=== PATIENT | male | born 1950 | race Caucasian/White ===

== ENCOUNTER 2022-12-30 10:30 | Outpatient (RCR) | payer MEDICARE, BC, SELFPAY ==
--- NOTE | 2022-06-08 14:52 | PT.OPEX ---
PT [place] [facility] Eval PT [facility] Out[facility] Eval Start: 06/07/22 12:44 Freq: Status: Active Protocol: Document 06/07/22 12:44 VICKY (Rec: 06/07/22 12:46 VICKY [id number]) E-signed By Les Al DPT, MS Physical Therapy Outpatient Evaluation Insurance Information Recert Due Date 09/05/22 Insurance Name Medicare B,Blue [employer] Medical Diagnosis Pre-op left total knee arthroplasty Treating Diagnosis L knee pain, decreased L knee ROM, decreased L LE flexibility and strength, and gait dysfunction Subjective Subjective Pt is a 72 y.o. male who presents to PT prior to L TKA on 06/30/22 at [facility]. Has struggled with chronic L knee pain for the past few years after an injury working during [employer] up in [place] which has limited mihcelle to standing and walking. Lives with his in a split-level home with 10-12 stairs and 1 railing. Has been recumbent biking for 30 minutes 5-6 days per week and performing SLR, wall sits and other LE strengthening exercises in prep for surgery. Leaves for a 10 day cruise in the [place] and would like advice for exercise. PMH includes HTN and prostate CA in remission. AGGR factors: walking, stair climbing, standing, sleeping, uneven surfaces, carrying objects. ALLEV factors: ice, rest. 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 Good quality of quad set with knee ROM 0-0-134 deg. Pt highly motivated to increase activity levels which have been limited by pain. He will benefit from continued skilled PT intervention to address these limitations, returning following L TKA. Primary Functional Limitations walking, stair climbing, standing, sleeping, uneven surfaces, carrying objects Plan of Care Rehabilitation Potential Excellent Physical Therapy Goals By end of session today, patient will... Demonstrate appropriate gait pattern with FWW to utilize post-surgery for optimal safety when ambulating Verbalize understanding of most appropriate home set up including needed equipment for optimal safety and recovery post- surgery Be independent in HEP program to show ability to perform appropriate exercises post-surgery Coordination/Communication With Referral Source Treatment Plan/Direct Interventions Gait Training,Joint Mobilization,Manual Therapy, Neuromuscular Re-ed, Therapeutic Exercises Frequency/Duration One pre-op visit then 2 x per week for at least 12-18 visits , decreasing visit frequency, as able. Patient Will Be Discharged From Therapy Completion of LTG(s),Skills Plateau,Independent w/HEP, Independently Progressing Evaluation Billing Untimed Code Treatment Minutes 24 Complexity Moderate Certification Information Initial Certification Date 06/07/22 Ending Certification Date 09/05/22 Provider Signature Shows Agreement With POC & Medical Necessity Physician Signature & Date Requested Please Sign/Date Here Physician Comment/Change : Physician NPI Number #
--- NOTE | 2022-09-17 14:56 | PT.OPDNX ---
PT [place] Outpatient Daily Note PT [facility] Outpatient Daily Note Start: 06/07/22 12:44 Freq: Status: Active Protocol: Document 09/17/22 14:42 VICKY (Rec: 09/17/22 14:55 VICKY [id number]) E-signed By YANDY LunsfordT, MS PT OP Daily Progress Note Visit Information Note Type Daily Note Visit Number [id number] Insurance Authorized Visits - Physician Authorized Visits Eval and treat Insurance Information Recert Due Date 09/05/22 Insurance Name Medicare B Medical Diagnosis Post-op left total knee arthroplasty Treating Diagnosis L knee pain, decreased L knee ROM, decreased L LE flexibility and strength, and gait dysfunction Subjective Subjective Pt reports his knee is tight and sore today after yesterday 's PT session. Passive ext going well. Sleep improving. Pain Comments 0-3/10 Preferred Name [facility] Precautions Weight Bearing Status Weight Bear as Tolerated Objective Other/Pertinent Objective L Knee passive ROM (supine) 0-1-119 deg Strength Hip flex: R 5, L 4+ Knee ext: R 5, L 4+ Knee flex: R 5, L 4+ Hip ABD: R 4+, L 4 Hip ext: R 4+, L 4 Gait: with SPC improved dvelocity with a stable pattern. without AD decreased R toe off and mild R Trendelenburg Stairs: Reciprocal pattern using momentum with 1 railing ascending with step-to pattern descending 4 steps Posture: Mild L trunk lean in standing Swelling: none observed Sensation: light touch intact bilat LE Patient Instructed in Risks/Benefits Yes Therapeutic Exercise Therapeutic Exercise Minutes (minutes) 35 Therapeutic Exercise: To Restore Progressed to recumbent bike x Functional Status 8 min L3 resistance with full rev seat #7 Standing TKE 3 plates 12 x 3 and BTB for home. Supine knee flex with PT assist Seated heel slide with R LE assist. Improved to 119 deg Walking march without AD at wall 25' x 6, 3 sets Seated HS stretch Standing heel raises at counter progressed 75% on L Seated HS curl 25# 10 x 3 with fatigue Standing gastroc stretch Rohit stretch SLS with L mild sway 5 sec Leg press B progressed 85# and uni 40# 10 x 3 each Passive knee ext stretch instructing him to hold as long as michelle Gait practice without AD cueing for increased velocity, upright posture and glute engagement Manual Therapy Techniques Manual Therapy Minutes (minutes) 10 Manual Therapy Techniques Knee AP mobs for ext STM distal hamstrings and proximal gastroc Treatment Minutes Timed Code Treatment Minutes 45 Total Treatment Time 45 Billing Units Manual Therapy Units 1 Therapeutic Exercise Units 2 Assessment/Impression Assessment/Impression Pt continues to progress well with continued improvement in L LE strength and NM control, quality of gait with and without a SPC and michelle to WBing activities. Ext ROM improving with pt performing passive ext stretching regularly. Good response again to combination of recumbent biking and progression or dynamic strengthening and balance exercises. Stairs improving with ecc control with descending remaining limited. Continues to display a stable gait pattern with a SPC with improved quality with training without an AD. Pt will benefit from continued skilled PT services, progressing as able. Plan of Care Physical Therapy Goals Short-term goals to be completed in 4 weeks: 1.Pt will display improved L knee passive ROM > 0-0-120 deg to improve quality of stair climbing. 2.Pt will display improved L LE strength as evidenced by ability to perform >12 SLR of good quality to improve quality of gait and progress to ambulation with single point cane. 3.Pt will report waking <3 times per night due to L knee pain to improve quality of sleep. Long-term goals to be completed in 10 weeks: 1.Pt will be independent and compliant with HEP 2.Pt will display improved L hip flex, hip ABD, quad and hamstring strength >4/5 to improve quality of gait without assistive device. 3.Pt will display improved mechanics going up<>down >3 stairs with a reciprocal pattern using 1 railing to safely enter his home. 4.Pt report >75% improvement in LEFS questionnaire to significantly improve michelle to daily activities. Daily Plan of Care Continue per POC Recertification Information Initial Certification Date 06/07/22 Recertification Start Date 09/05/22 Recertification Due Date 12/05/22 Reasons to Continue Skilled Therapy See assessment Rehabilitation Potential Excellent Continued Plan of Care and Interventions Continued TE, MT, NM re-ed and gait training 1-2x per week for 6-10 additional visits, decreasing frequency and transitioning to I sx management, as able. Provider Signature Shows Agreement With POC & Medical Necessity Physician Comment/Change Comment or Changes Physician NPI Number #
== END 2023-02-01 13:38 | disposition home or self-care (01) ==
PROVIDERS: PCP Family Medicine; Visit Provider Orthopaedic Surgery Sports Medicine
DX: M17.12 Unilateral primary osteoarthritis, left knee (principal); Z96.652 Presence of left artificial knee joint; Z51.89 Encounter for other specified aftercare
CPT/HCPCS: 97110; 97112; 97116; 97140; 97162; 97164; 97530

== ENCOUNTER 2023-09-05 15:43 | Emergency (ER) | payer MEDICARE, BC, SELFPAY ==
[2023-09-05] VITALS (150 sets, daily range): BP systolic 103–165; BP diastolic 67–96; PULSE 72–121; RESP 16–18; TEMP 36.7; O2SAT 89–99; BMI 27.4
--- NOTE | 2023-09-05 16:00 | ED.CHESTPAIN ---
HPI - Chest Pain General Time Seen by Provider: 16:00 Date Seen: 09/05/23 Chief Complaint: Chest Pain Stated Complaint: Chest/lower jaw pain Time Seen by Provider: 09/05/23 16:00 Source: patient, family, RN notes reviewed and old records reviewed Mode of arrival: ambulatory Limitations: no limitations History of Present Illness HPI narrative: 73-year-old male who presents today with chest pain. Patient notes 1 week of exertional substernal chest pain radiating to the jaw, better with rest. Decided to come in today because when the pain started did not go away quickly. He still has a little bit of pain. No associated nausea, diaphoresis, vomiting, or shortness of breath. No lower extremity swelling. Related Data Home Medications ?Medication ?Instructions ?Recorded ?Confirmed amlodipine 10 mg tablet 10 mg PO DAILY 04/21/22 11/16/22 chlorthalidone 25 mg tablet 25 mg PO DAILY 04/21/22 11/16/22 zolpidem 10 mg tablet 10 mg PO HS PRN 06/29/22 11/16/22 Previous Rx's ?Medication ?Instructions ?Recorded acetaminophen 500 mg capsule 500 - 1,000 mg (1 - 2 x 500 mg) PO 07/28/22 Q6H PRN #100 caps Allergies Allergy/AdvReac Type Severity Reaction Status Date / Time lisinopril Allergy Verified 11/16/22 09:41 pravastatin Allergy Verified 11/16/22 09:41 PFS PFS Medical History Essential hypertension ?I10 - Essential (primary) hypertension (ICD-10) Melanoma ?C43.9 - Malignant melanoma of skin, unspecified (ICD-10) Hyperlipemia ?E78.5 - Hyperlipidemia, unspecified (ICD-10) Surgical History Status post left knee replacement (07/28/22) ?Z96.652 - Presence of left artificial knee joint (ICD-10) H/O hernia repair ?Z98.890 - Other specified postprocedural states (ICD-10) ?Z87.19 - Personal history of other diseases of the digestive system (ICD-10) History of tonsillectomy ?Z90.89 - Acquired absence of other organs (ICD-10) H/O foot surgery (03/12/19) ?Z98.890 - Other specified postprocedural states (ICD-10) Family History Mother Colon cancer Father High blood pressure Social History Smoking Status: Never smoker Do you use any of these nicotine containing products: None How often do you have a drink containing alcohol: 4 or more times a week Alcohol type: hard liquor How many standard drinks containing alcohol do you have on a typical day: 1 or 2 How often do you have six or more drinks on one occasion: Never AUDIT-C Alcohol total score: 4 Non-prescribed substance use: denies use Caffeine: Yes (coffee, 2 cups/AM) service: No Exam Narrative Exam Narrative: General: Well-developed and well-nourished, no acute distress Head: Atraumatic and normocephalic Eyes: Pupils are equal reactive, extraocular motions intact, conjunctiva clear ENT: External nose and ears are normal, posterior pharynx without erythema or exudate Neck: No midline cervical tenderness, full spontaneous range of motion the neck, trachea midline, no adenopathy Heart: Regular rate and rhythm no murmurs or thrills Lungs: Clear to auscultation bilaterally without wheezes or crackles Abdomen: Soft, nontender, nondistended with active bowel sounds Musculoskeletal: No tenderness, deformity, or edema Neurologic: Awake, alert, and oriented x3, no gross focal neurologic deficits, cranial nerves intact as tested Psych: Mood and affect are appropriate Skin: No rashes Const Vital Signs, click to edit/add: Vital Signs - 24 hr 09/05/23 15:46 09/05/23 16:26 09/05/23 16:30 Temperature 98.0 F Pulse Rate 85 81 Pulse Rate [Right Pulse Oximeter] 93 Respiratory Rate 18 Blood Pressure Blood Pressure [Right Upper Arm] 165/78 H Pulse Oximetry 96 97 97 Oxygen Delivery Method Room Air 09/05/23 16:32 09/05/23 16:42 09/05/23 16:45 Temperature Pulse Rate 88 104 H 91 Pulse Rate [Right Pulse Oximeter] Respiratory Rate Blood Pressure 154/90 H 103/76 Blood Pressure [Right Upper Arm] Pulse Oximetry 95 89 92 Oxygen Delivery Method 09/05/23 16:47 09/05/23 16:52 09/05/23 16:57 Temperature Pulse Rate 92 96 93 Pulse Rate [Right Pulse Oximeter] Respiratory Rate Blood Pressure 133/87 105/67 110/76 Blood Pressure [Right Upper Arm] Pulse Oximetry 93 94 93 Oxygen Delivery Method 09/05/23 17:00 09/05/23 17:01 09/05/23 17:06 Temperature Pulse Rate 86 84 90 Pulse Rate [Right Pulse Oximeter] Respiratory Rate Blood Pressure 119/77 122/77 Blood Pressure [Right Upper Arm] Pulse Oximetry 94 97 94 Oxygen Delivery Method 09/05/23 17:12 09/05/23 17:15 09/05/23 17:17 Temperature Pulse Rate 88 91 92 Pulse Rate [Right Pulse Oximeter] Respiratory Rate Blood Pressure 121/88 128/86 Blood Pressure [Right Upper Arm] Pulse Oximetry 92 94 96 Oxygen Delivery Method 09/05/23 17:20 09/05/23 17:22 09/05/23 17:25 Temperature Pulse Rate 98 93 83 Pulse Rate [Right Pulse Oximeter] Respiratory Rate Blood Pressure 131/74 Blood Pressure [Right Upper Arm] Pulse Oximetry 94 94 94 Oxygen Delivery Method 09/05/23 17:27 09/05/23 17:30 09/05/23 17:32 Temperature Pulse Rate 86 75 90 Pulse Rate [Right Pulse Oximeter] Respiratory Rate Blood Pressure 117/79 128/88 Blood Pressure [Right Upper Arm] Pulse Oximetry 95 95 97 Oxygen Delivery Method 09/05/23 17:35 09/05/23 17:37 09/05/23 17:40 Temperature Pulse Rate 93 84 88 Pulse Rate [Right Pulse Oximeter] Respiratory Rate Blood Pressure 134/81 Blood Pressure [Right Upper Arm] Pulse Oximetry 95 96 96 Oxygen Delivery Method 09/05/23 17:42 09/05/23 17:45 09/05/23 17:47 Temperature Pulse Rate 85 90 84 Pulse Rate [Right Pulse Oximeter] Respiratory Rate Blood Pressure 126/78 119/76 Blood Pressure [Right Upper Arm] Pulse Oximetry 94 96 98 Oxygen Delivery Method 09/05/23 17:50 09/05/23 17:52 09/05/23 17:55 Temperature Pulse Rate 80 88 87 Pulse Rate [Right Pulse Oximeter] Respiratory Rate Blood Pressure 118/78 Blood Pressure [Right Upper Arm] Pulse Oximetry 96 98 98 Oxygen Delivery Method 09/05/23 17:57 09/05/23 18:00 09/05/23 18:02 Temperature Pulse Rate 87 82 85 Pulse Rate [Right Pulse Oximeter] Respiratory Rate Blood Pressure 133/76 126/79 Blood Pressure [Right Upper Arm] Pulse Oximetry 96 97 98 Oxygen Delivery Method 09/05/23 18:05 09/05/23 18:07 09/05/23 18:10 Temperature Pulse Rate 82 84 85 Pulse Rate [Right Pulse Oximeter] Respiratory Rate Blood Pressure 130/70 Blood Pressure [Right Upper Arm] Pulse Oximetry 97 96 96 Oxygen Delivery Method 09/05/23 18:12 09/05/23 18:15 09/05/23 18:17 Temperature Pulse Rate 80 85 80 Pulse Rate [Right Pulse Oximeter] Respiratory Rate Blood Pressure 132/79 128/91 H Blood Pressure [Right Upper Arm] Pulse Oximetry 97 96 98 Oxygen Delivery Method 09/05/23 18:20 09/05/23 18:21 09/05/23 18:25 Temperature Pulse Rate 82 84 82 Pulse Rate [Right Pulse Oximeter] Respiratory Rate Blood Pressure 138/83 Blood Pressure [Right Upper Arm] Pulse Oximetry 98 98 97 Oxygen Delivery Method 09/05/23 18:27 09/05/23 18:37 09/05/23 18:40 Temperature Pulse Rate 84 92 79 Pulse Rate [Right Pulse Oximeter] Respiratory Rate Blood Pressure 132/82 Blood Pressure [Right Upper Arm] Pulse Oximetry 98 99 98 Oxygen Delivery Method 09/05/23 18:45 09/05/23 18:50 09/05/23 18:55 Temperature Pulse Rate 78 72 74 Pulse Rate [Right Pulse Oximeter] Respiratory Rate Blood Pressure Blood Pressure [Right Upper Arm] Pulse Oximetry 97 98 96 Oxygen Delivery Method 09/05/23 19:00 09/05/23 19:02 09/05/23 19:05 Temperature Pulse Rate 77 85 81 Pulse Rate [Right Pulse Oximeter] Respiratory Rate Blood Pressure 140/85 H Blood Pressure [Right Upper Arm] Pulse Oximetry 96 97 98 Oxygen Delivery Method 09/05/23 19:10 09/05/23 19:15 09/05/23 19:20 Temperature Pulse Rate 83 85 89 Pulse Rate [Right Pulse Oximeter] Respiratory Rate Blood Pressure Blood Pressure [Right Upper Arm] Pulse Oximetry 96 98 96 Oxygen Delivery Method 09/05/23 19:25 09/05/23 19:30 09/05/23 19:35 Temperature Pulse Rate 100 103 H 89 Pulse Rate [Right Pulse Oximeter] Respiratory Rate Blood Pressure Blood Pressure [Right Upper Arm] Pulse Oximetry 96 97 97 Oxygen Delivery Method 09/05/23 19:40 09/05/23 19:45 09/05/23 19:50 Temperature Pulse Rate 93 90 93 Pulse Rate [Right Pulse Oximeter] Respiratory Rate Blood Pressure Blood Pressure [Right Upper Arm] Pulse Oximetry 97 95 97 Oxygen Delivery Method 09/05/23 19:52 09/05/23 19:55 09/05/23 19:57 Temperature Pulse Rate 88 97 98 Pulse Rate [Right Pulse Oximeter] Respiratory Rate Blood Pressure 157/96 H 158/88 H Blood Pressure [Right Upper Arm] Pulse Oximetry 95 96 94 Oxygen Delivery Method 09/05/23 19:58 09/05/23 20:00 09/05/23 20:02 Temperature Pulse Rate 94 101 H 102 H Pulse Rate [Right Pulse Oximeter] Respiratory Rate Blood Pressure 139/88 Blood Pressure [Right Upper Arm] Pulse Oximetry 94 96 93 Oxygen Delivery Method 09/05/23 20:05 09/05/23 20:07 09/05/23 20:08 Temperature Pulse Rate 97 98 100 Pulse Rate [Right Pulse Oximeter] Respiratory Rate Blood Pressure 151/94 H Blood Pressure [Right Upper Arm] Pulse Oximetry 96 94 95 Oxygen Delivery Method 09/05/23 20:10 09/05/23 20:12 09/05/23 20:15 Temperature Pulse Rate 103 H 105 H 105 H Pulse Rate [Right Pulse Oximeter] Respiratory Rate Blood Pressure 144/93 H Blood Pressure [Right Upper Arm] Pulse Oximetry 95 94 95 Oxygen Delivery Method 09/05/23 20:17 09/05/23 20:20 09/05/23 20:22 Temperature Pulse Rate 104 H 102 H 99 Pulse Rate [Right Pulse Oximeter] Respiratory Rate Blood Pressure 139/93 H 135/89 Blood Pressure [Right Upper Arm] Pulse Oximetry 93 94 92 Oxygen Delivery Method 09/05/23 20:25 09/05/23 20:27 09/05/23 20:30 Temperature Pulse Rate 112 H 105 H 104 H Pulse Rate [Right Pulse Oximeter] Respiratory Rate 16 Blood Pressure 152/91 H Blood Pressure [Right Upper Arm] Pulse Oximetry 94 92 94 Oxygen Delivery Method 09/05/23 20:32 09/05/23 20:35 09/05/23 20:37 Temperature Pulse Rate 106 H 109 H 109 H Pulse Rate [Right Pulse Oximeter] Respiratory Rate Blood Pressure 128/86 116/85 Blood Pressure [Right Upper Arm] Pulse Oximetry 93 95 92 Oxygen Delivery Method 09/05/23 20:40 09/05/23 20:41 09/05/23 20:45 Temperature Pulse Rate 106 H 104 H 101 H Pulse Rate [Right Pulse Oximeter] Respiratory Rate 18 Blood Pressure 118/81 Blood Pressure [Right Upper Arm] Pulse Oximetry 94 91 92 Oxygen Delivery Method 09/05/23 20:46 09/05/23 20:47 09/05/23 20:50 Temperature Pulse Rate 103 H 102 H 105 H Pulse Rate [Right Pulse Oximeter] Respiratory Rate Blood Pressure 111/78 Blood Pressure [Right Upper Arm] Pulse Oximetry 91 92 93 Oxygen Delivery Method 09/05/23 20:52 09/05/23 20:55 09/05/23 20:57 Temperature Pulse Rate 108 H 109 H 111 H Pulse Rate [Right Pulse Oximeter] Respiratory Rate 16 Blood Pressure 144/85 H 140/82 H Blood Pressure [Right Upper Arm] Pulse Oximetry 93 96 93 Oxygen Delivery Method 09/05/23 21:00 09/05/23 21:03 09/05/23 21:05 Temperature Pulse Rate 108 H 104 H 101 H Pulse Rate [Right Pulse Oximeter] Respiratory Rate Blood Pressure 138/85 Blood Pressure [Right Upper Arm] Pulse Oximetry 95 93 94 Oxygen Delivery Method 09/05/23 21:08 09/05/23 21:10 09/05/23 21:12 Temperature Pulse Rate 121 H 116 H 111 H Pulse Rate [Right Pulse Oximeter] Respiratory Rate Blood Pressure 123/84 151/95 H Blood Pressure [Right Upper Arm] Pulse Oximetry 91 95 95 Oxygen Delivery Method 09/05/23 21:15 09/05/23 21:17 09/05/23 21:18 Temperature Pulse Rate 107 H 106 H 104 H Pulse Rate [Right Pulse Oximeter] Respiratory Rate Blood Pressure 129/82 Blood Pressure [Right Upper Arm] Pulse Oximetry 95 95 94 Oxygen Delivery Method 09/05/23 21:20 09/05/23 21:22 09/05/23 21:25 Temperature Pulse Rate 104 H 105 H 107 H Pulse Rate [Right Pulse Oximeter] Respiratory Rate 18 Blood Pressure 123/81 Blood Pressure [Right Upper Arm] Pulse Oximetry 96 92 92 Oxygen Delivery Method 09/05/23 21:27 09/05/23 21:28 09/05/23 21:30 Temperature Pulse Rate 107 H 106 H 106 H Pulse Rate [Right Pulse Oximeter] Respiratory Rate 18 Blood Pressure 119/82 Blood Pressure [Right Upper Arm] Pulse Oximetry 94 92 93 Oxygen Delivery Method 09/05/23 21:32 09/05/23 21:35 09/05/23 21:37 Temperature Pulse Rate 104 H 107 H 106 H Pulse Rate [Right Pulse Oximeter] Respiratory Rate 16 Blood Pressure 121/73 112/74 Blood Pressure [Right Upper Arm] Pulse Oximetry 94 91 94 Oxygen Delivery Method 09/05/23 21:40 09/05/23 21:42 09/05/23 21:45 Temperature Pulse Rate 107 H 106 H 104 H Pulse Rate [Right Pulse Oximeter] Respiratory Rate Blood Pressure 113/74 Blood Pressure [Right Upper Arm] Pulse Oximetry 91 93 94 Oxygen Delivery Method 09/05/23 21:47 09/05/23 21:50 09/05/23 21:52 Temperature Pulse Rate 107 H 103 H 100 Pulse Rate [Right Pulse Oximeter] Respiratory Rate Blood Pressure 122/82 117/87 Blood Pressure [Right Upper Arm] Pulse Oximetry 93 92 97 Oxygen Delivery Method 09/05/23 21:53 09/05/23 21:55 09/05/23 21:57 Temperature Pulse Rate 98 103 H 103 H Pulse Rate [Right Pulse Oximeter] Respiratory Rate 16 Blood Pressure 122/76 Blood Pressure [Right Upper Arm] Pulse Oximetry 96 95 95 Oxygen Delivery Method 09/05/23 22:00 09/05/23 22:02 09/05/23 22:05 Temperature Pulse Rate 109 H 108 H 107 H Pulse Rate [Right Pulse Oximeter] Respiratory Rate 16 Blood Pressure 118/83 Blood Pressure [Right Upper Arm] Pulse Oximetry 94 93 91 Oxygen Delivery Method 09/05/23 22:07 09/05/23 22:10 09/05/23 22:12 Temperature Pulse Rate 103 H 106 H 104 H Pulse Rate [Right Pulse Oximeter] Respiratory Rate Blood Pressure 109/78 114/71 Blood Pressure [Right Upper Arm] Pulse Oximetry 92 94 92 Oxygen Delivery Method 09/05/23 22:15 09/05/23 22:17 09/05/23 22:20 Temperature Pulse Rate 100 99 97 Pulse Rate [Right Pulse Oximeter] Respiratory Rate Blood Pressure 111/76 Blood Pressure [Right Upper Arm] Pulse Oximetry 93 93 93 Oxygen Delivery Method 09/05/23 22:22 09/05/23 22:25 Temperature Pulse Rate 102 H 97 Pulse Rate [Right Pulse Oximeter] Respiratory Rate Blood Pressure 115/82 Blood Pressure [Right Upper Arm] Pulse Oximetry 94 95 Oxygen Delivery Method Course Course ED Course: Patient seen and examined, reviewed most recent primary care office visit from November 2022 which was follow-up for knee replacement, at that time no concerns. Reviewed medication list which includes amlodipine, chlorthalidone, and zolpidem. Patient presents today with about a week of exertional chest pain with increasing duration and intensity. Patient currently has very mild pain, EKG does not demonstrate any acute ischemic changes. We discussed the spectrum of acute coronary syndrome from STEMI to angina, rationale for testing today, and plan. Patient is agreeable. Aspirin and nitroglycerin are ordered. EKG ordered in independently interpreted by me performed at 4:08 p.m. demonstrates sinus rhythm with sinus arrhythmia and PVC, left axis deviation, no acute ST elevations or depressions, normal intervals, WI 178, QTC 440. No prior for comparison. Reevaluation(s) Time of Reevaluation #1: 17:17 Reevaluation #1: Labs ordered independently interpreted by me with troponin 0.05 which is just out of normal range, CBC is normal. Pain improved after nitroglycerin. Will repeat troponin and continue to monitor. Time of Reevaluation #2: 19:03 Reevaluation #2: Atrial repeat troponin is 0.13, representing significant delta. Patient's chest pain improved with nitroglycerin but has come back a little bit now. Repeat EKG is done, heparin drip will be initiated and transfer. Due to return of chest pain, repeat EKG was ordered and nitroglycerin drip will be started. EKG independently interpreted by me performed at 7:09 p.m. for return of chest pain demonstrates sinus rhythm with PVC, no acute ischemic changes, rate 85, WI 158, QTC 464. No change from prior of earlier today. Time of Reevaluation #3: 19:16 Reevaluation #3: Accepted for transfer to [facility] by Dr. Puckett, cardiology who accepts patient for transfer with delay. Additional Reevaluation(s): 22:34 patient remains stable in the emergency department nitroglycerin, did have to increased dose little bit due to recurrence of chest pain. Nursing report to Marcus now. Vital Signs Vital signs: Initial Vital Signs Temperature 98.0 F 09/05/23 15:46 Temperature Source Temporal Artery Scan 09/05/23 15:46 Pulse Rate 93 09/05/23 15:46 Pulse Rhythm Regular 09/05/23 15:46 Pulse Strength 3+ Normal 09/05/23 15:46 Respiratory Rate 18 09/05/23 15:46 Blood Pressure 165/78 H 09/05/23 15:46 Blood Pressure Mean 107 H 09/05/23 15:46 Blood Pressure Position Sitting 09/05/23 15:46 Pulse Oximetry 96 09/05/23 15:46 Oxygen Delivery Method Room Air 09/05/23 15:46 Vital Signs Temperature 98.0 F 09/05/23 15:46 Pulse Rate 93 09/05/23 15:46 Respiratory Rate 18 09/05/23 15:46 Blood Pressure 165/78 H 09/05/23 15:46 Pulse Oximetry 96 09/05/23 15:46 Oxygen Delivery Method Room Air 09/05/23 15:46 Temperature 98.0 F 09/05/23 15:46 Pulse Rate 97 09/05/23 22:25 Respiratory Rate 16 09/05/23 22:05 Blood Pressure 115/82 09/05/23 22:22 Pulse Oximetry 95 09/05/23 22:25 Oxygen Delivery Method Room Air 09/05/23 15:46 Medications Administered Medications: Generic Name Dose Route Start Last Admin Trade Name Freq PRN Reason Stop Dose Admin Heparin Sodium/Dextrose 25,000 unit in 500 mls @ 0 mls/hr 09/05/23 19:15 09/05/23 19:51 Heparin IV 1,000 unit/hr .Q0M CANDIS 20 mls/hr Administration Protocol Per Protocol Nitroglycerin/Dextrose 25,000 mcg in 250 mls @ 3 mls/hr 09/05/23 19:14 09/05/23 21:58 Nitroglycerin/Dextrose IVPB 10 mcg/min .TITRATE PRN 6 mls/hr Infusion Protocol 5 MCG/MIN Sodium Chloride 1,000 mls @ 1,000 mls/hr 09/05/23 22:12 09/05/23 22:14 0.9 % Sodium Chloride 1000 Ml IV 09/05/23 23:11 1,000 mls/hr .Q1H CANDIS Administration Nitroglycerin 0.4 mg 09/05/23 16:21 09/05/23 16:47 Nitroglycerin 0.4 Mg Tab.Subl SUBLINGUAL 0.4 mg Q5M PRN Administration chest pain Discontinued Medications Generic Name Dose Route Start Last Admin Trade Name Lucila PRN Reason Stop Dose Admin Aspirin 324 mg 09/05/23 16:21 09/05/23 16:31 Aspirin 81 Mg Tab.Chew PO 09/05/23 16:22 324 mg ONCE ONE Administration Heparin Sodium (Porcine) 4,000 unit 09/05/23 19:08 09/05/23 19:42 Heparin 5,000 Unit/0.5 Ml Inj IVP 09/05/23 19:09 4,000 unit ONCE ONE Administration MDM - Chest Pain Lab Data Labs: Lab Results 09/05/23 09/05/23 09/05/23 Range/Units 16:45 16:45 16:53 WBC 8.74 (4.50-11.00) K/uL RBC 4.60 (4.30-5.90) m/uL Hgb 14.6 (13.5-17.5) gm/dL Hct 42.2 (37.0-53.0) % MCV 92 (80-100) fL MCH 32 (26-34) pg MCHC 35 (32-36) gm/dL RDW Coeff of Dallin 12.6 (11.5-15.5) % Plt Count 182 (140-440) K/uL Neut % (Auto) 64.3 (42.0-72.0) % Lymph % (Auto) 22.2 (20-44) % Bledsoe % (Auto) 7.1 (0.0-11.0) % Eos % (Auto) 5.9 (0.0-7.0) % Baso % (Auto) 0.3 (0.0-3.0) % Neut # (Auto) 5.61 (1.7-7.0) K/uL Lymph # (Auto) 1.94 (0.90-2.90) K/uL Bledsoe # (Auto) 0.60 (0.00-0.90) K/UL Eos # (Auto) 0.52 H (0.00-0.50) K/uL Baso # (Auto) 0.03 (0.00-0.30) K/uL Abs Immat Gran (auto) 0.02 (0.00-0.30) K/uL Imm/Tot Granulo (auto) 0.2 % INR 1.00 1.04 (0.91-1.10) APTT 29 (23-33) Seconds Sodium 138 (135-149) mmol/L Potassium 3.9 (3.6-5.1) mmol/L Chloride 105 (96-114) mmol/L Carbon Dioxide 24 (20-32) mmol/L Anion Gap 9 (7-15) mEq/L BUN 17 (7-30) mg/dL Creatinine 1.0 (0.5-1.5) mg/dL Estimated Creat Clear 61.75 Estimated GFR 78 ml/min Glucose 106 (60-115) mg/dL Calcium 9.2 (8.4-10.6) mg/dL Magnesium 2.1 (1.5-2.6) mg/dL NT-Pro-B Natriuret Pep 74 pg/mL POC Troponin I 0.05 H (0.01-0.04) ng/ml 09/05/23 09/05/23 Range/Units 18:45 19:39 WBC 8.40 (4.50-11.00) K/uL RBC 4.58 (4.30-5.90) m/uL Hgb 14.5 (13.5-17.5) gm/dL Hct 42.2 (37.0-53.0) % MCV 92 (80-100) fL MCH 32 (26-34) pg MCHC 34 (32-36) gm/dL RDW Coeff of Dallin (11.5-15.5) % Plt Count 193 (140-440) K/uL Neut % (Auto) (42.0-72.0) % Lymph % (Auto) (20-44) % Bledsoe % (Auto) (0.0-11.0) % Eos % (Auto) (0.0-7.0) % Baso % (Auto) (0.0-3.0) % Neut # (Auto) (1.7-7.0) K/uL Lymph # (Auto) (0.90-2.90) K/uL Bledsoe # (Auto) (0.00-0.90) K/UL Eos # (Auto) (0.00-0.50) K/uL Baso # (Auto) (0.00-0.30) K/uL Abs Immat Gran (auto) (0.00-0.30) K/uL Imm/Tot Granulo (auto) % INR (0.91-1.10) APTT (23-33) Seconds Sodium (135-149) mmol/L Potassium (3.6-5.1) mmol/L Chloride (96-114) mmol/L Carbon Dioxide (20-32) mmol/L Anion Gap (7-15) mEq/L BUN (7-30) mg/dL Creatinine (0.5-1.5) mg/dL Estimated Creat Clear Estimated GFR ml/min Glucose (60-115) mg/dL Calcium (8.4-10.6) mg/dL Magnesium (1.5-2.6) mg/dL NT-Pro-B Natriuret Pep pg/mL POC Troponin I 0.13 H (0.01-0.04) ng/ml Critical Care Time Critical Care Time Critical Care Time: Yes (NSTEMI, heparin, transfer) Attestation: The patient required my highest level preparedness to intervene emergently and I personally spent this critical care time directly and personally managing the patient. This critical care time included: Obtaining a history; Examining the patient; Pulse oximetry; Ordering and reviewing of studies; Arranging urgent treatment with development of a management plan; Evaluation of patients response to treatment; Frequent reassessment discussions with other providers. This critical care time was performed to assess and manage the high probability of imminent life-threatening deterioration that could result in multiorgan failure. It was exclusive of separate billable procedures and treating other patients and teaching time. Total Critical Care Time in Minutes: 115 Discharge Plan Discharge Clinical Impression: Essential hypertension, Acute non-ST elevation myocardial infarction (NSTEMI) Patient Disposition: [facility] Prescriptions: No Action amlodipine 10 mg tablet 10 mg PO DAILY chlorthalidone 25 mg tablet 25 mg PO DAILY zolpidem 10 mg tablet 10 mg PO HS PRN acetaminophen 500 mg capsule 500 - 1,000 mg PO Q6H MDD 4000mg PRNQty: 100 0RF Stand Alone Forms: MyHealth Info Instructions
[2023-09-05] MEDS: ASPIRIN 81 MG TAB.CHEW 324 MG PO (16:31)
[2023-09-05] MEDS: NITROGLYCERIN 0.4 MG TAB.SUBL SUBLINGUAL ×2 (16:34→16:47)
--- OUTSIDE RECORDS SUMMARY | 2023-09-05 17:01 | XMS_ITS | Continuity of Care Document ---
[facility] Organization [facility] Address [address] [address] [place] [address] Phone Care Team Providers Care Drafter Electronic Name Role Phone Emile Joyner MD Unavailable Unavaila ble Allergies, Adverse Reactions, Alerts Substance Reaction Status Criticality lisinopril Active No Information simvastatin Active No Information pravastatin Active No Information Medications Medication Instructions Dosage Effective Dates (start - stop) Status Comments zolpidem 10 mg tablet Take 1 tablet by mouth at bedtime if needed for Sleep. - Active chlorthalidone 25 mg tablet Take 0.5 tablets by mouth once daily. - Active amlodipine 10 mg tablet Take 0.5 tablets by mouth once daily. - Active Procedures Procedure Date Virtual Visit E&M New Low-Mod 20-29 Min Advance Directives Directive Yes / No Effective Date File Name No Information Encounters Encounter Description Practice Location Reason(s) For Visit Diagnoses Date Provider Providers Copied on Encounter [facility], [address] [address], [place], [place], [id number], tel:[phone] [facility] Pancreas cyst 4 Ar Baptiste. [address] [place] [address], [id number], [place]. tel:[phone] [facility], [address] [address], [place], [place], [id number], [place] tel:[phone] [facility] Pancreas cyst 4 Ar Baptiste. [address] [place] [address], [id number], [place]. tel:[phone] [facility], [address] [address], [place], [place], [id number], tel:[phone] [facility] Pancreas cyst 1 Ar Baptiste. [address], [id number], . tel:[phone] Virtual Visit E&M New Low-Mod 20-29 Min [facility], [address] [address], [place], [place], [id number], [place] tel:[phone] [facility] GI Symptoms or Concerns (chief complaint) Pancreas cyst [address]. [address] [place] [address], [id number], [place]. tel:[phone] Referring Provider: Referral Self, USE FOR SELF REFERRALS. [facility], [address] [address], [place], [place], [id number], tel:[phone] [facility] No Information 0 Ar Baptiste. [address], [id number], . tel:[phone] [facility], [address] [address], [place], [place], [id number], tel:[phone] No Information 0 No Information Referring Provider: Emory Smalls MD E, [address] [place] [address], [place], [address]. tel:[phone] Family History Family Member Type Diagnosis Age At Onset Mother Problem (finding) cancer of colon Immunizations Vaccine Date Status Comments Seasonal trivalent influenza vaccine, adjuvanted, preservative free administered Note: [facility] bi-direct ional interface ; Source: Other Registry tetanus toxoid, reduced diphtheria toxoid, and acellular pertussis vaccine, adsorbed administered Note: [facility] b i-directional interface ; Source: Other Registry Seasonal trivalent influenza vaccine, adjuvanted, preservative free administered Note: [facility] bi-direct ional interface ; Source: Other Registry meningococcal oligosaccharid e (groups A, C, Y and W-135) diphtheria toxoid conjugate vaccine (MCV4O) administered Note: [facility] bi-direct ional interface ; Source: Other Registry measles, mumps and rubella v irus vaccine administered Note: [facility] bi-direct ional interface ; Source: Other Registry Seasonal trivalent influenza vaccine, adjuvanted, preservative free administered Note: [facility] bi-direct ional interface ; Source: Other Registry Pneumovax 23 administered Note: [facility] bi-d irectional interface ; Source: Other Registry influenza, high dose seasona l, preservative-free administered Note: [facility] bi-direct ional interface ; Source: Other Registry Prevnar 13 administered Note: [facility] bi-d irectional interface ; Source: Other Registry Fluzone Quad 6mo or older administered Note: [facility] bi-direct ional interface ; Source: Other Registry influenza, high dose seasona l, preservative-free administered Note: [facility] bi-direct ional interface ; Source: Other Registry typhoid Vi capsular polysaccharide vaccine administered Note: [facility] bi-dir ectional interface ; Source: Other Registry Influenza, seasonal, injecta ble, preservative free administered Note: [facility] bi-direct ional interface ; Source: Other Registry Influenza, seasonal, injecta ble, preservative free administered Note: [facility] bi-direct ional interface ; Source: Other Registry zoster vaccine, live administered Note: [facility] bi-directional interface ; Source: Other Registry Novel [id number], all formulations administered Note: [facility] bi-direct ional interface ; Source: Other Registry Influenza, seasonal, injectable administe red Note: [facility] bi- directional interface ; Source: Other Registry tetanus toxoid, reduced diphtheria toxoid, and acellular pertussis vaccine, adsorbed administered Note: [facility] b i-directional interface ; Source: Other Registry Influenza, seasonal, injectable administe red Note: [facility] bi- directional interface ; Source: Other Registry Influenza, seasonal, injectable administe red Note: [facility] bi- directional interface ; Source: Other Registry Influenza, seasonal, injectable administe red Note: [facility] bi- directional interface ; Source: Other Registry Influenza, seasonal, injectable administe red Note: [facility] bi- directional interface ; Source: Other Registry Influenza, seasonal, injectable administe red Note: [facility] bi- directional interface ; Source: Other Registry Payers Payer name Insurance type Covered green party ID Authoriza tijordyn(s) [employer] [place] [employer] [id number] Social History Type Description Quantity Date Captured Comments Alcohol Use Details Unknown Caffeine Use Details Unknown Tobacco Use Status No Information Smoking Status No Information Sex Male Chief Complaint And Reason For Visit No Information Reason For Referral Reason For Referral No Information Plan Of Treatment Date Type Action Status Referral Ordered: MRCP Biliary/Pancreatic Ducts WITHOUT And WITH Contrast Appointment date/timeframe: 09/18/2020 ordered History Of Present Illness Encounter Date Complaint History Of Prese nt Illness GI Symptoms or Concerns The radha ent was seen today for a virtual visit. It was confirmed that he was at home and he consented to his 's presents for the visit.The patient is a very pleasant 69-year-old man with past medical history significant for hypertension, hyperlipidemia, and pancreatic cyst. He is referred by Dr. Smalls for evaluation of this pancreatic cyst. 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 Cross-sectional imaging showed the pancreatic cyst in the head to be about 6 mm in size. No high-risk stigmata. He was seen for his annual checkup and repeat MRI was performed. This showed the cyst at the head/uncinate to have increased in size to 11 mm. No main duct involvement, solid component. He denies any abdominal pain, nausea, dyspepsia. No inadvertent weight loss, jaundice, scleral icterus, pruritus. He has had no change in his bowel habits. There is a family history for mother with colon cancer in her 70s and he has a melanoma in situ that Functional Status Date Functional Assessmen t No Information Instructions Date Instruction Additional Infor mation No Information Assessments Type Assessment Date assessment Pancreas cyst Patient Care Teams Name Effective Dates (start - stop) Status Members No Information
--- OUTSIDE RECORDS SUMMARY | 2023-09-05 17:01 | XMS_ITS | Clinical Summary ---
Author Organization [employer] [facility] [employer] Address [place], [place] [address] Care Team Providers Care Faculty Member Name Role Phone Meghan Hathaway AuD Unavailable [phone] Moose Gilmore MD Primary Care Provider [phone] Allergies Active Allergy Reactions Criticality Noted Date Comments Lisinopril Cough,Hepatic Dysfunction 10/19/2016 He had elevated ALT and AST when on a combination of lisinopril and pravastatin Pravastatin Hepatic Dysfunction 08/29/2019 He had elevated ALT and AST when on a combination of Pravastatin and Lisinopril. Emory Smalls MD signed electronically .................... 08/29/2019 Simvastatin Myalgia 02/01/2011 Medications Medication Sig Dispensed Refills Start Date End Date Status cholecalciferol (Vitamin D) 1,000 unit capsule Take 1 Capsule (1,000 units) by mouth once daily. 0 09/02/2020 Active amLODIPine (NORVASC) 10 mg tabletIndications:Es sential hypertension Take 0.5 Tablets (5 mg) by mouth once daily. 45 Tablet 3 03/11/2023 Active chlorthalidone (HYGROTON) 25 mg tabletIndications:Es sential hypertension Take 0.5 Tablets (12.5 mg) by mouth every morning. 45 Tablet 3 03/11/2023 Active zolpidem (AMBIEN) 10 mg tabletIndications:In somnia, idiopathic Take 1 Tablet (10 mg) by mouth at bedtime if needed for Sleep. 30 Tablet 03/11/2023 Active allopurinoL (ZYLOPRIM) 100 mg tabletIndications:Go ut, unspecified cause, unspecified chronicity, unspecified site take 100mg by mouth once daily for 2 weeks; then increase to 200mg for 2 weeks; then increase to 300mg 100 Tablet 08/12/2023 Active triamcinolone (ARISTOCORT; KENALOG) 0.1 % creamIndications:Dillon matitis Apply topically to affected area(s) 2 times daily if needed (Itching/rash). 60 g 08/16/2023 Active Active Problems Problem Noted Date Diagnosed Date Skin cancer 06/26/2020 Overview: 06/2020 left upper thigh, BCC, patient prefers full excision for this lesion--scheduled for excision 09/01/20 Atypical nevus 06/26/2020 Overview: 06/2020 left of midline upper back, moderate, negative margins Atypical mole 01/01/2020 Overview: 01/29/20 left mid upper back, severe atypia, excised 02/12/20 Dr. Selam Strong MD 12/28/19 left shoulder, severe atypia, excised 01/29/20 Dr. 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 Melanoma 08/29/2019 Overview: 01/29/20: Left mid back, melanoma in situ, excised 02/12/20. 08/24/19: Left shoulder, Melanoma in situ, excised 09/19/19. 06/28/22: No melanoma recalls. Statin intolerance 08/29/2019 Overview: Simvastatin caused myalgias in 2010. Pravastatin and Lisinopril resulted in drug induced hepatitis in 2016. Would be reluctant to put him on statins in the future. Emory Smalls MD signed electronically .................... 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 Overview: MRI 10/2017- two small pancreatic cysts, recommend repeat MRI in 1 year; Unchanged in 2020 - recommended repeat in 2 years Insomnia, unspecified 07/25/2010 Routine General Medical Exam ination at a Health Care Facility 02/16/2007 Overview: colonoscopy 2007 Recheck 5 yrs Colonoscopy 01/2012 diverticulosis repeat in 5 years Colonoscopy 02/2017 polyps repeat in 5 years Sensorineural hearing loss, bilateral 01/05/2007 Unspecified essential hypertension 04/21/2006 Mixed hyperlipidemia 04/21/2006 Resolved Problems Problem Noted Date Diagnosed Date Resolved Date Grief reaction 02/01/2011 09/02/2020 Special screening for malign ant neoplasm of prostate 12/15/2006 09/02/2020 Encounters Date Type Department Care Team Description 09/02/2023 Nurse Triage [facility] [address] [place] [address] Moose Gilmore MD Chest Pain/problem 08/12/2023 4:30 PM CDT Office Visit [facility] [address] [place] [address] Moose Gilmore MD Results 08/12/2023 Travel 08/03/2023 3:45 PM CDT Orders Only [facility] [address] [place] [address] Lab, [place] [facility] 08/03/2023 Travel 08/02/2023 Orders Only [facility] Scanner 1 scan: (1-Ord) [facility], [facility] MIDDLE FINGER PIP JOINT ARTHRODESIS, 08/02/2023 07/18/2023 8:15 AM CDT Preop Visit [facility] [place] [address] [address] Moose Gilmore MD Pre-Op Exam (PRE-OP PHYSICAL 08/02/23 - LT HAND SURGERY [facility] FAX: [phone] ) 07/18/2023 Travel from Last 3 Months Immunizations Name Administration Dates Next Due AMB Influenza, IIV3 (Age >=3 years)(Flu Clinic Only) 01/12/2008 Amb Influenza, Inact (High-d ose) (Flu Clinic Only) 01/23/2016 COVID-19 vaccine (Moderna 100mcg/0.5mL) PF, MDV 08/31/2021,05/30/2020,05/02/2020 Hepatitis A (Adult) 08/12/1995,01/21/1995 Influenza A (H1N1), Inactivated 01/10/2009 Influenza, High-dose Inactivated 12/13/2013 Influenza, High-dose Quadriv alent Inactivated 12/04/2022,12/15/2021,12/05/2020 Influenza, IIV3 (Age >=3 years) 11/16/19 13,02/16/2012,02/01/2011,11/24,11/29/2008,01/06/2007,01/12/2006 Influenza, IIV4 12/02/2014 Influenza, Inactivated IIV3 (Age 65+ Years) Preserv Free 12/02/2018,02/20/2018,12/15/2016 MMR 09/09/2017 Meningococcal Vaccine (Menveo) 09/09/2017 Pneumococcal Poly,23-Valent (Pneumovax) 07/05/2016 Pneumococcal conj 13-Valent (Prevnar 13) 04/21/2015 RSV, Recombinant ADJ Reconst ituted (Arexvy 120MCG/0.5mL) 12/04/2022 Td (Age >=7 Years) 07/05/1998 Tdap 02/20/2018,02/22/2008 Tuberculin (PPD) 12/02/2014 Typhoid (injectable) 05/14/2021,03/30/2011,04/14 Yellow Fever 04/15/2000 Zoster (Shingrix-RZV, recombinant) 12/08/2020, Zoster (Zostavax-ZVL, live) 02/13/2009 Family History Medical History Relation Name Comments Heart Disease Father Enrico sudden cardiac at 61 Hypertension Father Enrico had sympathecto my for HTN Cancer-colon Mother Selam of colon c ancer at 78 due to complications of surgery Hypertension Mother Selam Relation Name Status Comments Father Enrico (Age 61) of [place] Mother Selam (Age 78) of [place] Cancer Other Kalpana Alive Spouse Son 1 Edgar Alive Son 2 Darrius (Age 25) Suicide: h arian himself 05/18/2010 Social History Tobacco Use Types Packs/Day Years Used Date Smoking Tobacco: Never Passive Smoke Exposure: Never Smokeless Tobacco: Never Tobacco Cessation:Counseling Given: Not Answered Alcohol Use Standard Drinks/Week Comments Not Currently 7 (1 standard drink = 0.6 oz pur e alcohol) PHQ-2 Answer Date Recorded PHQ-2 TOTAL SCORE 0 03/11/2023 Social Connections Answer Date Recorded Frequency of Communication with Friends and Fami ly 0 03/11/2023 Financial Resource Strain Answer Date R ecorded Difficulty of Paying Living Expenses 3 03/11/2023 Difficulty of Paying Living Expenses Not on file 03/11/2023 Food Insecurity Answer Date Recorded Worried About Running Out of Food in the Last Ye ar 1 03/11/2023 Transportation Needs Answer Date Record ed Lack of Transportation (Medical) 1 03/11/2023 Housing Stability Answer Date Recorded Unable to Pay for Housing in the Last Year 1 03/11/2023 Sex and Gender Information Value Date Recorded Sex Assigned at Not on file Gender Identity Not on file Sexual Orientation Not on file Obstetrics History Last Filed Vital Signs Vital Sign Reading Time Taken Comments Blood Pressure 152/85 08/12/2023 4:31 PM CDT Pulse 74 08/12/2023 4:31 PM CDT Temperature 36.6 ??C (97.8 ??F) 07/21/2022 8:55 AM CD T Respiratory Rate 16 10/06/2022 8:47 AM CDT Oxygen Saturation 99% 08/12/2023 4:26 PM CDT Inhaled Oxygen Concentration - - Weight 86 kg (189 lb 8 oz) 08/12/2023 4:26 PM CD T Height 173.4 cm (5' 8.27) 07/18/2023 8:20 AM CD T Body Mass Index 28.59 07/18/2023 8:20 AM CDT Plan of Treatment Upcoming Encounters Date Type Department Care Team (Late st Contact Info) Description 09/20/2023 7:35 AM CDT Office Visit [facility] [address] [place] [address] Moose Gilmore MD [address] [facility] [address] 09/23/2023 8:00 AM CDT Orders Only [facility] [place] [address] [address] [place] [address] [place] 09/29/2023 9:00 AM CDT Office Visit [facility] [address] [place] [address] Moose Gilmore MD [address] [place] [address] Health Maintenance Due Date Last Done Comments Influenza for age 65+ 11/06/2023 12/04/2022 , 12/15/2021, 12/05/2020, Additional history exists Depression screening for age 12+ 03/11/2024 03/11/2023, 10/29/2021, 09/05/2020, Additional history exists Medicare Wellness for age 65+ 03/11/2024, 10/29/2021, 09/02/2020, Additional history exists BMI (ht and wt on same day) for age 18+ 07/17/2024 07/18/2023, 03/11/2023, 06/11/2022, Additional history exists Lipids for age 45-75 08/26/2024 08/27/2019, 01/26/2017, 10/25/2016, Additional history exists Colonoscopy through age 75 10/07/202710/06, 10/06/2022, 02/16/2017, Additional history exists Tetanus booster 02/21/2028 02/20/2018, 02/04, 07/05/1998 Pneumococcal series for age 65+ Completed 7, 04/21/2015 Hepatitis C screening for ag e 18-79 Completed 10/25/2016 Tdap Completed 02/20/2018, 02/22/2008 Zoster (shingles) series for age 50+ Completed 12/08/2020, 09/24/2020, 02/13/2009 COVID-19 vaccine series Completed 07/18/19 24, 12/04/2022, 01/04/2022, Additional history exists Procedures Procedure Name Priority Date/Time Associated Diagnosis Comments HEPATIC FUNCTION PANEL Routine 08/03/2023 3:47 PM CDT Gouty tophus CBC W PLT NO DIFF Routine 08/03/2023 3:4 7 PM CDT Gouty tophus URIC ACID Routine 08/03/2023 3:47 PM CDT Gouty tophus SCAN-OPERATIVE/PROC EDURE REPORT 08/02/2023 12:00 AM CDT POTASSIUM Routine 07/18/2023 8:52 AM CDT Essential hypertension COLONOSCOPY 10/06/2022 7:44 AM CDT LIPID PANEL W REFLEX MEASURED LDL Routine 08/27/2019 9:48 AM CDT Mixed hyperlipidemia ACUTE HEPATITIS PANEL Add On 10/25/2016 5:17 PM CDT Jaundice from Last 3 Months or Most Recently Relevant to Health Maintenance Results * CBC W PLT NO DIFF (08/03/2023 3:47 PM CDT) WHITE BLOOD COUNT 8.6 4.5 - 11.0 thou/cu mm 08/03/2023 3:51 PM CDT [facility] RED BLOOD COUNT 4.86 4.30 - 5.90 mil/cu mm 08/03/2023 3:51 PM CDT [facility] HEMOGLOBIN 15.8 13.5 - 17.5 g/dL 08/03/2023 3:51 PM CDT [facility] HEMATOCRIT 44.7 37.0 - 53.0 % 08/03/2023 3:51 PM CDT [facility] MCV 92 80 - 100 fL 08/03/2023 3:51 PM CDT [facility] MCH 32.5 26.0 - 34.0 pg 08/03/2023 3:51 PM CDT [facility] MCHC 35.3 32.0 - 36.0 g/dL 08/03/2023 3:51 PM CDT [facility] RDW 13.3 11.5 - 15.5 % 08/03/2023 3:51 PM CDT [facility] PLATELET COUNT 210 140 - 440 thou/cu mm 08/03/2023 3:51 PM CDT [facility] MPV 9.9 6.5 - 11.0 fL 08/03/2023 3:51 PM CDT [facility] Blood BLOOD SPECIMEN / Unknown Venipuncture / Unknown 08/03/2023 3:47 PM CDT 08/03/2023 3:48 PM CDT Moose Gilmore MD HEMATOLOGY Performing Organization Address City/[facility]/ZIP Co de Phone Number [facility] [address] [place] [address], * (ABNORMAL) URIC ACID (08/03/2023 3:47 PM CDT) URIC ACID 9.0(H) 3.4 - 7.0 mg/dL 08/04/2023 3:06 PM CDT [facility] Blood BLOOD SPECIMEN / Unknown Venipuncture / Unknown 08/03/2023 3:47 PM CDT 08/03/2023 3:48 PM CDT Moose Gilmore MD [facility] [address] [place] [address], * (ABNORMAL) HEPATIC FUNCTION PANEL (08/03/2023 3:47 PM CDT) ALBUMIN 4.4 4.0 - 4.9 g/dL 08/04/2023 3:06 PM CDT [facility] PROTEIN,TOTAL 7.5 6.0 - 8.0 g/dL 08/04/2023 3:06 PM CDT [facility] BILIRUBIN,TOTAL 0.5 0.0 - 1.2 mg/dL 08/04/2023 3:06 PM CDT [facility] BILIRUBIN,DIRECT <0.2 0.0 - 0.3 mg/dL 08/04/2023 3:06 PM CDT [facility] BILIRUBIN,INDIRE CT 08/04/2023 3:06 PM CDT [facility] Comment:Unable to calculate, Direct Bili <0.2 ALK PHOSPHATASE 80 40 - 129 IU/L 08/04/2023 3:06 PM CDT [facility] ALT (SGPT) 57(H) 10 - 50 IU/L 08/04/2023 3:06 PM CDT [facility] AST (SGOT) 48 10 - 50 IU/L 08/04/2023 3:06 PM CDT [facility] Blood BLOOD SPECIMEN / Unknown Venipuncture / Unknown 08/03/2023 3:47 PM CDT 08/03/2023 3:48 PM CDT Moose Gilmore MD CHEMISTRY Performing Organization Address City/[facility]/ZIP Co de Phone Number [facility] [address] [place] [address], * SCAN-OPERATIVE/PROCEDURE REPORT (08/02/2023 12:00 AM CDT) Scanner OTHER * POTASSIUM (07/18/2023 8:52 AM CDT) POTASSIUM 3.8 3.5 - 5.1 mmol/L 07/18/2023 5:49 PM CDT [facility] Blood BLOOD SPECIMEN / Unknown Venipuncture / Unknown 07/18/2023 8:52 AM CDT 07/18/2023 8:53 AM CDT Moose Gilmore MD CHEMISTRY [facility] [address] [address], * COLONOSCOPY (10/06/2022 7:44 AM CDT) 10/06/2022 7:44 AM CDT Narrative Transcriptions Silvio Padilla MD - 10/06/2022 8:43 AM CDT Patient Name: Enrico Venegas Procedure Date: 10/06/2022 Gender: Male Date of : 1950 Admit Type: Outpatient Procedure: Colonoscopy Proceduralist: Silvio Padilla MD , Rose Mary Jimenez (Nurse), Breann Taylor RN (Nurse) Indications/Pre-Op Diagnosis: High risk colon cancer surveillance:Personal history of multiple (3 or more) adenomas,Last colonoscopy: February 2017 Medications: Fentanyl 100 micrograms IV, Midazolam 3 mgIV, The level of sedation administered wasmoderate Procedure Description: The patient had risks, benefits and alternatives explained to andgave informed consent. The patient had a stable cardiopulmonary status and judged an adequate candidate for conscious sedation. The endoscope [id number]-H190L [id number] was passed through the anus andadvanced to the cecum, identified by appendiceal orifice and ileocecal valve.The colonoscopy was performed without difficulty. The patient toleratedthe procedure well. The quality of the bowel preparation was good. The ileocecal valve, appendiceal orifice, and rectum were photographed. Complications: No immediate complications. Estimated Blood Loss & Specimen: Estimated blood loss: none. Specimen collected - None Findings: The perianal and digital rectal examinations were normal. A 3 mm polyp was found in the descending colon. The polyp wassessile. The polyp was removed with a cold snare. Resection was complete, butthe polyp tissue was not retrieved. Scattered small and large-mouthed diverticula were found in thesigmoid colon, descending colon and ascending colon. The exam was otherwise without abnormality. Impressions/Post-Op Diagnosis: - One 3 mm polyp in the descending colon, removed with a cold snare. Complete resection. Polyp tissue not retrieved. - Diverticulosis in the sigmoid colon, in the descending colon and in the ascending colon. - The examination was otherwise normal. Recommendation: - Patient has a contact number available for emergencies. The signsand symptoms of potential delayed complications were discussed with the patient. Return to normal activities tomorrow. Written discharge instructions were provided to the patient. - Resume previous diet. - Continue present medications. - Await pathology results. - Repeat colonoscopy in 5 years for surveillance. Moderate Sedation: A time out was performed before the procedure. Moderate (conscious) sedation was administered by the endoscopy nurse and supervised bythe endoscopist. The following parameters were monitored: oxygensaturation, heart rate, blood pressure, EKG, CO2, respiratory rate, adequacy of pulmonary ventilation and reponse to care. Please refer to the patient's medical record flowsheets and nursing notes for moderate sedation details. Total physician intraservice time was 21 minutes. Silvio Padilla MD 10/06/2022 8:37:42 AM This report has been signed electronically. Note Initiated On: 10/06/2022 7:44 AM Procedure Code(s): --- Professional --- 27113, Colonoscopy, flexible; with removalof tumor(s), polyp(s), or other lesion(s) bysnare technique Diagnosis Code(s): --- Professional --- Z86.010, Personal history of colonicpolyps D12.4, Benign neoplasm of descending colon K57.30, Diverticulosis of large intestine without perforation or abscess withoutbleeding CPT copyright 2021 [employer]. All rights reserved. The codes documented in this report are preliminary and upon equipment operat0r reviewmay be revised to meet current compliance requirements. Scope In: 8:08:35 AM Scope Withdrawal Time 0 hours 12 minutes 51 seconds Scope Out: 8:27:19 AM Silvio Padilla MD PROCEDURE ORD * (ABNORMAL) LIPID PANEL W REFLEX MEASURED LDL (08/27/2019 9:48 AM CDT) CHOLESTEROL,TOTAL 219(H) 100 - 199 mg/dL 08/27/2019 4:52 PM CDT [facility] TRIGLYCERIDES 132 <150 mg/dL 08/27/2019 4:52 PM CDT [facility] HDL CHOLESTEROL 47 >40 mg/dL 0 4:52 PM CDT [facility] NON-HDL CHOLESTEROL 172(H) <145 mg/dl 08/27/2019 4:52 PM CDT [facility] CHOL/HDL RATIO 4.66(H) <4.50 08/27/2019 4:52 PM CDT [facility] LDL CHOLESTEROL 146(H) <=130 mg/dL 08/27/2019 4:52 PM CDT [facility] PROVIDER ORDERED STATUS RANDOM 08/27/2019 4:52 PM CDT [facility] Blood BLOOD SPECIMEN / Unknown Venipuncture / Unknown 08/27/2019 9:48 AM CDT 08/27/2019 9:48 AM CDT Emory Smalls MD CHEMISTRY [facility] [address] [place] [address], * ACUTE HEPATITIS PANEL (10/25/2016 5:17 PM CDT) HEPATITIS C ANTIBODY Non-Reactive Non-Reactive 10/27/2016 10:47 PM CDT [facility] IGM ANTI HAV Non-Reactive Non-Reactive 10/28/19 17 10:47 PM CDT [facility] HBSAG Nonreactive Nonreactive 10/27/2016 10:47 PM CDT [facility] IGM ANTI HBC Non-Reactive Non-Reactive 10/28/19 17 10:47 PM CDT [facility] Blood BLOOD SPECIMEN / Unknown Venipuncture / Unknown 10/25/2016 5:17 PM CDT 10/25/2016 5:17 PM CDT Narrative [facility] - 10/27/2016 10:47 PM CDT Anti-HBc IgM not detected. Does not exclude the possibility of exposure to or infection with HBV. Emory Smalls MD SEND OUTS [facility] [address] [place] [address], from Last 3 Months or Most Recently Relevant to Health Maintenance Advance Directives Documents on File Type Date Recorded Patient Service Engineer Expl anation Healthcare Directive 07/06/2016 10:40 AM [facility], 05/09/2016 Care Teams Faculty Member Relationship Specialty Start Date End Date Moose Gilmore MD [address] [place] [address] PCP - General Family Practice 03/19/21 Meghan Hathaway AuD Audiology 02/10/06
[2023-09-05 17:02] LABS: Basophils Absolute Auto 0.03 K/uL (0.00-0.30); Basophils Percent Auto 0.3 % (0.0-3.0); Eosinophils Absolute Auto 0.52 K/uL (0.00-0.50); Eosinophils Percent Auto 5.9 % (0.0-7.0); Hematocrit 42.2 % (37.0-53.0); Hemoglobin* 14.6 gm/dL (13.5-17.5); Immature Granulocytes Abs Auto 0.02 K/uL (0.00-0.30); Immature Granulocytes Pct Auto 0.2 %; Lymphocytes Absolute Auto 1.94 K/uL (0.90-2.90); Lymphocytes Percent Auto 22.2 % (20-44); Mean Corpuscular HGB Conc 35 gm/dL (32-36); Mean Corpuscular Hemoglobin 32 pg (26-34); Mean Corpuscular Volume 92 fL (80-100); Monocytes Percent Auto 7.1 % (0.0-11.0); Neutrophils Absolute Auto 5.61 K/uL (1.7-7.0); Neutrophils Percent Auto 64.3 % (42.0-72.0); Platelet Count* 182 K/uL (140-440); RDW Coefficient of Variation % 12.6 % (11.5-15.5); White Blood Count* 8.74 K/uL (4.50-11.00)
[2023-09-05 17:04] LABS: Troponin, Point-of-Care* 0.05 ng/ml (0.01-0.04)
[2023-09-05 17:08] LABS: Slide Review Reflex No
[2023-09-05 17:18] LABS: Chloride* 105 mmol/L (96-114); Potassium* 3.9 mmol/L (3.6-5.1); Sodium* 138 mmol/L (135-149)
[2023-09-05 17:21] LABS: Anion Gap 9 mEq/L (7-15); Blood Urea Nitrogen* 17 mg/dL (7-30); Carbon Dioxide* 24 mmol/L (20-32); Est. Creatinine Clearance* 61.75; Estimated Glomerular Filt Rate 78 ml/min; Glucose* 106 mg/dL (60-115)
[2023-09-05 17:22] LABS: Calcium* 9.2 mg/dL (8.4-10.6); Magnesium* 2.1 mg/dL (1.5-2.6)
[2023-09-05 17:23] LABS: Prothrombin Time 13.8 Seconds
[2023-09-05 17:31] LABS: NT Pro B Type NatriureticPept* 74 pg/mL
[2023-09-05 19:05] LABS: Troponin, Point-of-Care* 0.13 ng/ml (0.01-0.04)
[2023-09-05 19:29] LABS: INR 1.04 (0.91-1.10); Prothrombin Time 14.2 Seconds
[2023-09-05] MEDS: HEPARIN 5,000 UNIT/0.5 ML INJ 4000 UNIT IVP (19:42)
[2023-09-05 19:46] LABS: Partial Thromboplastin Time* 29 Seconds (23-33)
[2023-09-05] MEDS: NITROGLYCERIN/DEXTROSE 25,000 MCG/250 ML BOTTLE 3 MCG IVPB (19:49)
[2023-09-05] MEDS: HEPARIN 25,000 UNIT/500 ML BAG 20 UNIT IV (19:51)
--- NOTE | 2023-09-05 19:57 | ED.NURSE ---
1954 Patient started on Nitroglycerin drip and heparin drip. Dr orders state to titrate nitroglycerin drip until patient not having chest pain and systolic BP >110 and MAP greater than 65. Nitro started at 5mcg/min.
[2023-09-05 20:04] LABS: Hematocrit 42.2 % (37.0-53.0); Hemoglobin* 14.5 gm/dL (13.5-17.5); Mean Corpuscular HGB Conc 34 gm/dL (32-36); Mean Corpuscular Hemoglobin 32 pg (26-34); Mean Corpuscular Volume 92 fL (80-100); Platelet Count* 193 K/uL (140-440); Red Blood Count 4.58 m/uL (4.30-5.90)
[2023-09-05 20:22] LABS: Slide Review Reflex No
[2023-09-05] MEDS: 0.9 % SODIUM CHLORIDE 1000 ml 1,000 ML IV (22:14)
--- NOTE | 2023-09-05 22:14 | ED.NURSE ---
2205: Patient BP at 109/78 (map of 91) after increasing nitroglycerin to 10mcg/min. MD notified. Okay with BP <110 as long as MAP is still above 65. MD ordered 1000mL fluid bolus. Nurse to watch and titrate nitro drip as needed. Patient reported pain to be better.
--- NOTE | 2023-09-05 23:29 | ED.NURSE ---
Nurse to nurse report given to Angeline. notified and patient transported via ambulance.
== END 2023-09-05 23:25 | disposition home or self-care (01) ==
PROVIDERS: Emergency Provider Family Medicine; PCP Surgery
DX: I21.4 Non-ST elevation (NSTEMI) myocardial infarction (principal); I10 Essential (primary) hypertension
CPT/HCPCS: 36415; 80048; 83735; 83880; 84484; 85025; 85027; 85610; 85730; 93005; 99285; 99291; 99292; A9270; J1644; J7030

== ENCOUNTER 2023-09-05 23:12 | Outpatient (CLI) | payer MEDICARE, BC, SELFPAY ==
--- OUTSIDE RECORDS SUMMARY | 2023-09-12 16:44 | XMS_ITS | Clinical Summary ---
Author Organization [facility] Address [place], [place] [address] Care Team Providers Care [employer] Dispatcher Name Role Phone Meghan Hathaway AuD Unavailable [phone] Moose Gilmore MD Primary Care Provider [phone] Allergies Active Allergy Reactions Criticality Noted Date [...] Dispensed Refills Start Date End Date Status zolpidem (AMBIEN) 10 mg tabletIndications: Insomnia, idiopathic Take 1 Tablet (10 mg) by mouth at bedtime if needed for Sleep. 30 Tablet 03/11/2023 Active allopurinoL (ZYLOPRIM) 100 mg tabletIndications: Gout, unspecified cause, unspecified chronicity, unspecified site take 100mg by mouth once daily for 2 weeks; then increase to 200mg for 2 weeks; then increase to 300mg 100 Tablet 08/12/2023 Active triamcinolone (ARISTOCORT; KENALOG) 0.1 % creamIndications:D ermatitis Apply topically to affected area(s) 2 times daily if needed (Itching/rash). 60 g 08/16/2023 Active naproxen (NAPROSYN) 275 mg tablet Take 550 mg by mouth every 12 hours if needed for Pain (gout pain). Active aspirin chewable 81 mg chewable tabletIndications: NSTEMI (non-ST elevated myocardial infarction) (HC) Take 1 Tablet (81 mg) by mouth or nasogastric tube once daily. 90 Tablet 3 09/07/2023 Active clopidogreL (PLAVIX) 75 mg tabletIndications: S/P drug eluting coronary stent placement Take 1 Tablet (75 mg) by mouth once daily in the morning. Take 4 tabs (300 mg) 09/06/23 evening dose. On 09/06 take 1 tablet daily thereafter x12 months. Cardiac stent 09/06/23. 94 Tablet 09/07/2023 Active losartan (COZAAR) 25 mg tabletIndications: NSTEMI (non-ST elevated myocardial infarction) (HC),Hypertension Take 1 Tablet (25 mg) by mouth once daily. 90 Tablet 09/07/2023 Active metoprolol succinate (Toprol XL) 25 mg Sustained-Release tabletIndications: NSTEMI (non-ST elevated myocardial infarction) (HC) Take 1 Tablet (25 mg) by mouth once daily. 90 Tablet 09/07/2023 Active nitroglycerin (NITROSTAT) 0.4 mg sublingual tabletIndications: NSTEMI (non-ST elevated myocardial infarction) (HC) Place 1 Tablet (0.4 mg) under the tongue every 5 minutes if needed for Chest pain 1st choice (Hold if SBP less than 90 mmHg). Up to 3 tablets in 15 minutes. 25 Tablet 11 09/06/2023 Active rosuvastatin (CRESTOR) 5 mg tabletIndications: NSTEMI (non-ST elevated myocardial infarction) (HC) Take one-half Tablets (2.5 mg) by mouth at bedtime. 90 Tablet 09/06/2023 Active indomethacin (INDOCIN) 50 mg capsule Take 1 Capsule (50 mg) by mouth two times daily with meals. For gout, use short term, decrease down to off as soon as possible. 09/12/2023 Active cholecalciferol (Vitamin D) 1,000 unit capsule Take 1 Capsule (1,000 units) by mouth once daily. 0 09/02/2020 Discontinue d(*Patient states no longer taking) amLODIPine (NORVASC) 10 mg tabletIndications: Essential hypertension Take 0.5 Tablets (5 mg) by mouth once daily. 45 Tablet 3 03/11/2023 4 Discontinue d(*IP Discontinue d) chlorthalidone (HYGROTON) 25 mg tabletIndications: Essential hypertension Take 0.5 Tablets (12.5 mg) by mouth every morning. 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 Would be reluctant to put him on [...] a Health Care Facility 02/16/2007 Overview: colonoscopy 2006 Recheck 5 yrs Colonoscopy 01/2012 diverticulosis repeat in 5 years Colonoscopy 02/2017 polyps repeat in 5 years Sensorineural hearing loss, bilateral 01/05/2007 Unspecified essential hypertension 04/21/2006 Mixed hyperlipidemia 04/21/2006 Resolved Problems Problem Noted Date Diagnosed Date Resolved Date Grief reaction 02/01/2011 09/02/2020 Special screening for malign ant neoplasm of prostate 12/15/2006 09/02/2020 Encounters Date Type Department Care Team Description 09/12/2023 1:50 PM CDT Office Visit [facility] [address] [place] [address] Mic Clement MD Hospital F/U ([facility] DOD: 09/06/2023/Heart Attack/Stent Placement) 09/12/2023 Travel 09/07/2023 Patient Outreach [facility] [address] [place] [address] Priti Thompson RN Primary RN Care Management; Hospital F/U ([facility]) 09/06/2023 12:26 AM CDT - 09/06/2023 4:40 PM CDT Hospital Encounter [facility] [address] [place], [place] [id number] [facility], [facility] Hospitalists Of Phillip Baxter MD Estharabadi, Navid, DO Nguyen, Duc Minh, MD NSTEMI (non-ST elevated myocardial infarction) (HC) (Primary Dx); Cardiovascular symptoms; S/P drug eluting coronary stent placement; Hypertension Discharge Disposition: Home Self Care 09/06/2023 Travel 09/05/2023 Telephone [facility] [place] [address] [facility] [place] [address] [place] [phone] Kevin Puckett MD 09/02/2023 Nurse Triage [facility] [address] [place] [address] Moose Gilmore MD Chest Pain/problem 08/12/2023 4:30 PM CDT Office Visit [facility] [address] [place] [address] Moose Gilmore MD Results 08/12/2023 Travel 08/03/2023 3:45 PM CDT Orders Only [facility] [place] [address] [address] Lab, [place] Lab 08/03/2023 Travel 08/02/2023 Orders Only [facility] Scanner 1 scan: (1-Ord) [facility], LT MIDDLE FINGER PIP JOINT ARTHRODESIS, 08/02/2023 07/18/2023 8:15 AM CDT Preop Visit [facility] [address] [place] [address] Moose Gilmore MD Pre-Op Exam (PRE-OP PHYSICAL 08/02/23 - LT HAND SURGERY [facility] FAX: [phone] ) 07/18/2023 Travel from Last 3 Months Immunizations Name Administration Dates Next Due AMB Influenza, IIV3 (Age >=3 years)(Flu Clinic Only) 01/12/2008 Amb Influenza, Inact (High-d ose) (Flu Clinic Only) 01/23/2016 COVID-19 vaccine (Moderna 100mcg/0.5mL) PF MDV 08/31/2021,05/30/2020,05/02/2020 Hepatitis A (Adult) 08/12/1995,01/21/1995 Influenza [...] History Relation Name Comments Heart Disease Father Feliz sudden cardiac at 61 Hypertension Father Feliz had sympathecto my for HTN Cancer-colon Mother Selam of colon c ancer at 78 due to complications of surgery Hypertension Mother Selam Relation Name Status Comments Father Feliz (Age 61) of [place] Mother Selam (Age 78) of [place] Cancer Other Kalpana Alive Spouse Son 1 Edgar Alive Son 2 Darrius (Age 25) Suicide: h arian himself 05/18/2010 Social History Tobacco Use Types Packs/Day Years Used Date Smoking Tobacco: Never Passive Smoke Exposure: Never Smokeless Tobacco: Never Tobacco Cessation:Counseling Given: Not Answered Alcohol Use Standard Drinks/Week Comments Yes 7 (1 standard drink = 0.6 oz [...] Sign Reading Time Taken Comments Blood Pressure 146/60 09/12/2023 2:35 PM CDT Pulse 69 09/12/2023 1:53 PM CDT Temperature 36.6 ??C (97.8 ??F) 09/06/2023 1:43 PM CD T Respiratory Rate 16 09/06/2023 1:43 PM CDT Oxygen Saturation 100% 09/12/2023 1:53 PM CDT Inhaled Oxygen Concentration - - Weight 87 kg (191 lb 11.2 oz) 09/12/2023 1:53 PM CDT Height 173.4 cm (5' 8.27) 07/18/2023 8:20 AM CD T Body Mass Index 28.92 07/18/2023 8:20 AM CDT Plan of Treatment Upcoming Encounters Date Type Department Care Team (Late st Contact Info) Description 09/23/2023 8:00 AM CDT Orders Only [facility] [address] [place] [address] [place] 09/29/2023 9:00 AM CDT Office Visit [facility] [address] [place] [address] Moose Gilmore MD [address] [place] [address] 11/16/2023 2:30 PM CDT Office Visit [facility] [address] [place] [phone] Kevin Puckett MD [address] [facility] [address] [place] [address] Health Maintenance Due Date Last Done Comments Influenza for age 65+ 11/06/2023 12/04/2022 , 12/15/2021, 12/05/2020, Additional history exists Depression screening for age 12+ 03/11/2024 03/11/2023, 10/29/2021, 09/05/2020, Additional history exists Medicare Wellness for age 65+ 03/11/2024, 10/29/2021, 09/02/2020, Additional history exists BMI (ht and wt on same day) for age 18+ 07/17/2024 07/18/2023, 03/11/2023, 06/11/2022, Additional history exists Colonoscopy through age 75 10/07/202710/06, 10/06/2022, 02/16/2017, Additional history exists Tetanus booster 02/21/2028 02/20/2018, 02/04, 07/05/1998 Lipids for age 45-75 09/05/2028 09/06/2023, 08/27/2019, 01/26/2017, Additional history exists Pneumococcal series for age 65+ Completed 7, 04/21/2015 Hepatitis C screening for ag e 18-79 Completed 10/25/2016 Tdap Completed 02/20/2018, 02/22/2008 Zoster (shingles) series for age 50+ Completed 12/08/2020, 09/24/2020, 02/13/2009 COVID-19 vaccine series Completed 07/18/19, 12/04/2022, 01/04/2022, Additional history exists Procedures Procedure Name Priority Date/Time Associated Diagnosis Comments SCAN CORRESP-EKG RESULTS 09/06/2023 4:31 PM CDT ECHO TTE COMPLETE WO CONTRAST Routine 09/06/2023 3:38 PM CDT EKG 12 LEAD Today 09/06/2023 12:44 PM CDT BASIC METABOLIC PANEL KYARA 09/06/2023 11:17 AM CDT POTASSIUM Early AM 09/06/2023 11:17 AM CDT MAGNESIUM Early AM 09/06/2023 11:17 AM CDT LIPID PANEL Early AM 09/06/2023 11:17 AM CDT HEMOGLOBIN Early AM 09/06/2023 11:17 AM CDT PLATELET COUNT Early AM 09/06/2023 11:17 AM CDT [facility] ACTIVATED CLOTTING TM CV Timed 09/06/2023 9:20 AM CDT [facility] ACTIVATED CLOTTING TM CV Timed 09/06/2023 9:10 AM CDT CVL CORONARY ANGIOGRAM POSS PCI Routine 09/06/2023 9:06 AM CDT Cardiovascular symptoms SCAN-CARDIAC STRIP 09/06/2023 6: 29 AM CDT GLUCOSE METER Timed 09/06/2023 6:13 AM CDT SCAN-CARDIAC STRIP 09/06/2023 2: 43 AM CDT APTT Timed 09/06/2023 2:08 AM CDT HEPATIC FUNCTION PANEL Routine 08/03/2023 3:47 PM CDT Gouty tophus CBC W PLT NO DIFF Routine 08/03/2023 3:4 7 PM CDT Gouty tophus URIC ACID Routine 08/03/2023 3:47 PM CDT Gouty tophus SCAN-OPERATIVE/PROCE DURE REPORT 08/02/2023 12:00 AM CDT POTASSIUM Routine 07/18/2023 8:52 AM CDT Essential hypertension COLONOSCOPY 10/06/2022 7:44 AM CDT ACUTE HEPATITIS PANEL Add On 10/25/2016 5:17 PM CDT Jaundice from Last 3 Months or Most Recently Relevant to Health Maintenance Results * SCAN CORRESP-EKG RESULTS (09/06/2023 4:31 PM CDT) Narrative 09/06/2023 4:31 PM CDT Ordered by an unspecified provider. Other Clinical Staff OTHER * ECHO TTE COMPLETE WO CONTRAST (09/06/2023 3:38 PM CDT) AORTIC VALVE MEAN PG 4 mmHg EJECTION FRACTION 62 % LVEDD 4.4 cm Anatomical Region Laterality Modality Ultrasound 09/06/2023 1:28 PM CDT Narrative 09/06/2023 4:07 PM CDT ECHOCARDIOGRAM FELIZ VENEGAS ? Accession#: ?? [id number] : ?1950 73 years Study Date: ?? 09/06/2023 1:28:35 PM Gender: M ?BP: ? 146/76 mmHg Height: 173.00 cm ?BSA: ?1.98 m? ? ? Weight: 84.00 kg ? Tech: ? MBL ? Referring MD: MATTHIEU HOOKS Site: ? [facility] Reading Location: [facility]W IP Patient Location: Inpatient. Procedure: 2D, Color Doppler and Spectral Doppler. Indication for study: Chest pain Cardiac Rhythm: Regular.Study quality: Fair. Final Impressions: 1. Normal left ventricular size, mildly increased wall thickness, normal global systolic function, calculated EF of 62 %. 2. Right ventricular cavity size is normal, global systolic RV function is normal. 3. Normal left atrium size. 4. The aortic valve is normal and trileaflet, no stenosis and no regurgitation. 5. Tricuspid valve is normal. 6. The mitral valve is sclerotic, mild to moderate mitral regurgitation. 7. No pericardial effusion. Chamber Sizes and Function Normal left ventricular size, mildly increased wall thickness, normal global systolic function, calculated EF of 62 %. Left atrial size is normal. Left atrial pressure is normal. Right ventricular cavity size is normal, global systolic RV function is normal. RV wall thickness is normal. The right atrium is normal. Right atrial volume index is 11 ml/m? ? ?. Right atrial area is 11 cm? ? ?. The pulmonary artery is of normal size and origin. The sinus of Valsalva is normal sized. The ascending aorta is normal sized. Valves, RV Pressures and Diastolic Function The aortic valve is normal in structure and trileaflet, no stenosis and no regurgitation. The mitral valve is sclerotic, mild to moderate mitral regurgitation. Indeterminate pattern of LV diastolic filling. The tricuspid valve is normal in structure. Tricuspid regurgitation is trace regurgitation. The pulmonic valve is normal. No pulmonary regurgitation. Masses, Effusion, Shunts There is no pericardial effusion. The inferior vena cava is normal sized, respiratory size variation greater than 50%. No left to right shunting was detected by limited color flow Doppler interrogation of the interatrial septum. MEASUREMENTS AND CALCULATIONS 2-D Measurements and LV Function: LVID (d) 4.4 cm Planimetered EF 62 % LVID (s) 3.1 cm LV FS% (2D) ? 30 % IVS (d) ??1.4 cm LVOT diameter ?? 2.1 cm LVPW (d) 1.0 cm HR ?82 bpm Ao Sinus 3.4 cm LA Vol index ?29 ml/m2 Asc Ao ?? 3.9 cm RA Vol index ?11 ml/m2 ?RA area ? 11 cm?RV Max 4C (d) ?? 2.8 cm Diastology: Mitral ?Tissue Doppler E Peak 0.8 m/s ??e', Septum ? 0.05 m/s A Peak 1.0 m/s ??e', Lateral ?0.06 m/s E/A ?0.9 ?E/e' Average ?? 14.49 DT ? 191 msec Aortic Valve: Vmax ? 1.4 m/s ??JAMES (V) ?? 2.26 cm? ? ? VTI ?0.27 m ?? JAMES (I) ?? 2.20 cm? ? ? LVOT V max 0.9 m/s ??Max PG ?7 mmHg LVOT VTI ?? 0.17 m ?? Mean PG ?? 4 mmHg SV ? 59 ml ?Dim Index 0.64 SV index ?? 30 ml/m? ? ? CO ?4.9 l/min ?CI ?2.5 l/min/m? ? ? Mitral Valve: MVA ?4.0 cm? ? ? MV P 1/2 55 msec Tricuspid Valve and estimated PA pressures: TAPSE 2.2 cm . This study was interpreted by an [facility] accredited facility. ??Final ?? Procedure Note Linette Dillon, [facility] - 09/06/2023 ECHOCARDIOGRAM FELIZ VENEGAS : 1950 73 years Study Date: 09/06/2023 1:28:35 PM Gender: M BP: 146/76 mmHg Height: 173.00 cm BSA: 1.98 m? ? ? Weight: 84.00 kg Tech: MARCELO Referring MD: MATTHIEU HOOKS Site: [facility] Reading Location: [facility] Patient Location: Inpatient. Procedure: 2D, Color Doppler and Spectral Doppler. Indication for study: Chest pain Cardiac Rhythm: Regular.Study quality: Fair. Final Impressions: 1. Normal left ventricular size, mildly increased wall thickness, normalglobal systolic function, calculated EF of 62 %. 2. Right ventricular cavity size is normal, global systolic RV functionis normal. 3. Normal left atrium size. 4. The aortic valve is normal and trileaflet, no stenosis and noregurgitation. 5. Tricuspid valve is normal. 6. The mitral valve is sclerotic, mild to moderate mitralregurgitation. 7. No pericardial effusion. Chamber Sizes and Function Normal left ventricular size, mildly increased wall thickness, normalglobal systolic function, calculated EF of 62 %. Left atrial size isnormal. Left atrial pressure is normal. Right ventricular cavity size isnormal, global systolic RV function is normal. RV wall thickness isnormal. The right atrium is normal. Right atrial volume index is 11ml/m? ? ?. Right atrial area is 11 cm? ? ?. The pulmonary artery is of normalsize and origin. The sinus of Valsalva is normal sized. The ascendingaorta is normal sized. Valves, RV Pressures and Diastolic Function The aortic valve is normal in structure and trileaflet, no stenosis and noregurgitation. The mitral valve is sclerotic, mild to moderate mitralregurgitation. Indeterminate pattern of LV diastolic filling. Thetricuspid valve is normal in structure. Tricuspid regurgitation is traceregurgitation. The pulmonic valve is normal. No pulmonary regurgitation. Masses, Effusion, Shunts There is no pericardial effusion. The inferior vena cava is normal sized,respiratory size variation greater than 50%. No left to right shunting wasdetected by limited color flow Doppler interrogation of the interatrialseptum. MEASUREMENTS AND CALCULATIONS 2-D Measurements and LV Function: LVID (d) 4.4 cm Planimetered EF 62 % LVID (s) 3.1 cm LV FS% (2D) 30 % IVS (d) 1.4 cm LVOT diameter 2.1 cm LVPW (d) 1.0 cm HR 82 bpm Ao Sinus 3.4 cm LA Vol index 29 ml/m2 Asc Ao 3.9 cm RA Vol index 11 ml/m2 RA area 11 cm? ? ? RV Max 4C (d) 2.8 cm Diastology: Mitral Tissue Doppler E Peak 0.8 m/s e', Septum 0.05 m/s A Peak 1.0 m/s e', Lateral 0.06 m/s E/A 0.9 E/e' Average 14.49 DT 191 msec Aortic Valve: Vmax 1.4 m/s JAMES (V) 2.26 cm? ? ? VTI 0.27 m JAMES (I) 2.20 cm? ? ? LVOT V max 0.9 m/s Max PG 7 mmHg LVOT VTI 0.17 m Mean PG 4 mmHg SV 59 ml Dim Index 0.64 SV index 30 ml/m? ? ? CO 4.9 l/min CI 2.5 l/min/m? ? ? Mitral Valve: MVA 4.0 cm? ? ? MV P 1/2 55 msec Tricuspid Valve and estimated PA pressures: TAPSE 2.2 cm . This study was interpreted by an [facility] accredited facility. Final Matthieu Hooks DO ECHO ORD * ECG TODAY (09/06/2023 12:44 PM CDT) Interpretation Normal sinus rhythm with sinus arrhythmia Minimal voltage criteria for LVH, may be normal variant ( R in aVL ) Anterior infarct , age undetermined T wave abnormality, consider lateral ischemia Abnormal ECG No previous ECGs available BEYOND NOW Ventricular Rate 89 BPM BEYOND NOW Atrial Rate 89 BPM BEYOND NOW P-R Interval 164 ms BEYOND NOW QRS Duration 86 ms BEYOND NOW QT 380 ms BEYOND NOW QTc 462 ms BEYOND NOW P Majestic 12 degrees BEYOND NOW R Majestic -26 degrees BEYOND NOW T Majestic 100 degrees BEYOND NOW 09/06/2023 12:4 4 PM CDT 09/07/2023 7:14 PM CDT Janelle Wharton PLANISHER EKG ORD BEYOND NOW [place], [place] * PLATELET COUNT (09/06/2023 11:17 AM CDT) PLATELET COUNT 173 140 - 440 thou/cu mm 09/06/2023 11:53 AM CDT [employer] [facility] MPV 10.2 6.5 - 11.0 fL 09/06/2023 11:53 AM CDT [facility] Blood BLOOD SPECIMEN / Unknown Butterfly / Unknown 09/06/2023 11:17 AM CDT 09/06/2023 11:39 AM CDT Narrative [facility] - 09/06/2023 11:53 AM CDT Every morning while on IV heparin. Necessary every morning while on IV heparin. [facility] HEMATOLOGY Performing Organization Address [facility] de Phone Number [facility] [address] [place] [address], [place] * HEMOGLOBIN (09/06/2023 11:17 AM CDT) HEMOGLOBIN 14.4 13.5 - 17.5 g/dL 09/06/2023 11:53 AM CDT [facility] MCV 90 80 - 100 fL 09/06/2023 11:53 AM CDT [facility] Blood BLOOD SPECIMEN / Unknown Butterfly / Unknown 09/06/2023 11:17 AM CDT 09/06/2023 11:39 AM CDT Narrative [facility] - 09/06/2023 11:53 AM CDT Every morning while on IV heparin. Necessary every morning while on IV heparin. [facility] HEMATOLOGY Performing Organization Address [facility] de Phone Number [facility] [address] [place] [address], * POTASSIUM (09/06/2023 11:17 AM CDT) Only the most recent of2 resultswithin the time period is included. POTASSIUM 3.8 3.5 - 5.1 mmol/L 09/06/2023 12:22 PM CDT [facility] Blood BLOOD SPECIMEN / Unknown Butterfly / Unknown 09/06/2023 11:17 AM CDT 09/06/2023 11:39 AM CDT Kevin Puckett MD CHEMISTRY [facility] [address] [place] [id number], [place] * MAGNESIUM (09/06/2023 11:17 AM CDT) MAGNESIUM 1.9 1.6 - 2.4 mg/dL 09/06/2023 12:22 PM CDT [facility] Blood BLOOD SPECIMEN / Unknown Butterfly / Unknown 09/06/2023 11:17 AM CDT 09/06/2023 11:39 AM CDT Kevin Puckett MD CHEMISTRY Performing Organization Address [facility]/ZIP Co de Phone Number [facility] [address] [place] [id number], [place] * Lipid Panel AM (09/06/2023 11:17 AM CDT) CHOLESTEROL,TOTAL 182 100 - 199 mg/dL 09/06/2023 12:22 PM CDT [facility] Comment: Cholesterol, Total Reference Ranges Desirable <200 mg/dL Borderline 200-239 mg/dL High >=240 mg/dL TRIGLYCERIDES 87 <150 mg/dL 09/06/2023 12:22 PM CDT [facility] HDL CHOLESTEROL 49 >40 mg/dL 12:22 PM CDT [facility] NON-HDL CHOLESTEROL 133 <145 mg/dl 09/06/2023 12:22 PM T [facility] CHOL/HDL RATIO 3.71 <4.50 09/06/2023 12:22 PM CDT [facility] LDL CHOLESTEROL 116 <=130 mg/dL 09/06/2023 12:22 PM CDT [facility] VLDL CHOLESTEROL 17 <=30 mg/dL 09/06/2023 12:22 PM CDT [facility] PROVIDER ORDERED STATUS RANDOM 09/06/2023 12:22 PM CDT [facility] Blood BLOOD SPECIMEN / Unknown Butterfly / Unknown 09/06/2023 11:17 AM CDT 09/06/2023 11:39 AM CDT Matthieu Hooks CHEMISTRY [facility] [address] [place] [address], * (ABNORMAL) Basic metabolic panel FOR ADD ON (09/06/2023 11:17 AM CDT) SODIUM 138 136 - 145 mmol/L 09/06/2023 12:22 PM CDT [facility] POTASSIUM 3.8 3.5 - 5.1 mmol/L 09/06/2023 12:22 PM CDT [facility] CHLORIDE 104 98 - 107 mmol/L 09/06/2023 12:22 PM CDT [facility] CO2,TOTAL 22 22 - 29 mmol/L 09/06/2023 12:22 PM T [facility] ANION GAP 12 5 - 18 09/06/2023 12:22 PM CDT [facility] GLUCOSE 91 70 - 99 mg/dL 09/06/2023 12:22 PM T [facility] CALCIUM 9.1 8.8 - 10.2 mg/dL 09/06/2023 12:22 PM CDT [facility] BUN 13 8 - 23 mg/dL 09/06/2023 12:22 PM T [facility] CREATININE 0.96 0.70 - 1.20 mg/dL 09/06/2023 12:22 PM T [facility] BUN/CREAT RATIO 14 10 - 20 12:22 PM T [facility] eGFR 82(L) >90 mL/min/1.7 3m2 09/06/2023 12:22 PM T [facility] Comment:As of 2021, eG FR is calculated by the CKD-EPI creatinine equation without race adjustment. ??eGFR can be influenced by muscle mass, exercise, and diet. ??The reported eGFR is an estimation only and is only applicable if the renal function is stable. Blood BLOOD SPECIMEN / Unknown Butterfly / Unknown 09/06/2023 11:17 AM CDT 09/06/2023 11:39 AM CDT Janelle Wharton NP CHEMISTRY Performing Organization Address City/[facility]/ZIP Co de Phone Number [facility] [address] [place] [phone], * (ABNORMAL) ACTIVATED CLOTTING TIME FAM400 ACT (09/06/2023 9:20 AM CDT) Only the most recent of2 resultswithin the time period is included. [facility] Signature ACTIVATED CLOTTING TIME, POCT 295(H) 74 - 125 sec 09/07/2023 6:50 PM CDT [facility] Blood BLOOD SPECIMEN / Unknown 09/06/2023 9:20 AM CDT 09/07/2023 6:50 PM CDT [facility] HEMATOLOGY Performing Organization Address City/[facility] Co de Phone Number [facility] [address] [place] [address], [place] * CVL CORONARY ANGIOGRAM POSS PCI (09/06/2023 9:06 AM CDT) Anatomical Region Laterality Modality Other 09/06/2023 9:06 AM CDT Narrative Transcriptions Jarvis Romero MD - 09/06/2023 9:29 AM CDT [facility] Cardiac Catheterization Report Name: FELIZ VENEGAS Event Date: 09/06/2023 09:06 [facility] ID #: [id number] FERN #: [id number] Patient Class: Inpatient Diagnostic Physician: JARVIS ROMERO [facility] Interventional Physician: JARVIS ROMERO [facility] Referring Physician: Date: 1950 Gender: Male Age: 73 Summary/Conclusions PRESENTATION / INDICATIONS * Emergent * NonSTEMI VASCULAR ACCESS * Using ultrasound guidance and a percutaneous technique, the right commonfemoral artery was accessed. Ultrasound was used to confirm vesselpatency, localizing needle into the lumen of the vessel. An image wassaved for the medical record. DIAGNOSTIC - CORONARY * Right dominant coronary artery system * The left main artery has minimal disease. * The LAD is severely diseased in the mid segment. * The circumflex artery has mild disease. * The RCA has mild disease. INTERVENTION * Successful stenting (drug eluting) of the mid LAD (3.0 x 12 mm Ab) SPECIAL PROCEDURES * Right femoral arteriotomy was successfully closed utilizing a closuredevice RECOMMENDATIONS & PLAN * Aspirin: 81 mg daily * Ticagrelor 90 mg bid * Optimize risk factors and medications * Follow up with primary physician * Follow up with agriculture manager Consent & [place] Protocol The risks, benefits, and alternatives of the procedure were discussed withthe patient and written informed consent was obtained. [place] protocol was followed. TIME OUT conducted just prior tostarting procedure confirmed patient identity, site/side, procedure,patient position, and availability of correct equipment and implants (ifapplicable). Staff Name Title Jarvis Romero Diagnostic Consulting Technical Manager Belkis Pierre RN Nurse Costa Stovall CVT Scrub Bola Tovar CVT Monitor Jarvis Romero Submersible Pilot Procedures ? Ultrasound Guided Vascular Access ? Coronary Angiogram ? Femoral Closure Device ? Stent Placement, Drug Eluting [PCI] Diagnostic Findings * Left Anterior Descending ? 90% stenosis in the Mid LAD. The lesion has a PALMER flow of 3. Lesion Information Lesion # Vessel Segment Lesion Length Lesion Details 1 Mid LAD 8 Hemodynamics State: Baseline Pressures (mmHg) Site Systolic Diastolic End Diastolic A Wave V Wave Mean AO 125 67 60 Interventional Results * Left Anterior Descending ? Successful intervention to the Mid LAD 90% lesion with a finalstenosis of 0% using a 3mm x 12mm Drug Eluting Stent. The final TIMIflow was 3. Interventional Devices Lesion # Vessel Segment Type Name Max Pressure 1 Mid LAD Drug Eluting Stent NELIA AB [place] RX [id number] Procedure Details Estimated Blood Loss: < 30 ml Specimen Collected: None Level of Sedation Achieved: Moderate Procedure Start: 09:06 Procedure End: 09:21 Procedure Time: 15 min Fluoroscopy Time: 3.5 min Cumulative Air Kerma: 256 mGy DAP: 2183 uGy/M2 Contrast: Omnipaque (low-osmolar), 75 ml Physiologic Data Weight: 83.5 kg BSA: 1.98 m2 Vascular Access Time Access Sheath Size 09:07 Right Femoral Artery, sheath inserted Complications ? No Complications Medications Ordered and Administered Start Time Stop Time Medication Dose Units Route Ordered By Given By 09:05 Fentanyl 50 mcg IV Jarvis Romero Leesa RN 09:05 Versed 1 mg IV Jarvis Romero Leesa RN 09:07 1% Lidocaine 10 ml Subcut Jarvis Romero Paul 09:15 Heparin 7000 units IV Jarvis Romero Leesa RN 09:21 Ticagrelor/Brilinta 180 mg PO Jarvis Romero Leesa RN I personally monitored the patient?s conscious sedation during theprocedure. Conscious sedation starts with the first sedation medication dose ofFentanyl or Versed and ends when the procedure is completed, the patientis stable for recovery status, and the physician or other qualified healthcare professional providing the sedation ends personal [id number]-[id number] time with the patient. The medications listed above were verbally ordered by me and read back tome as documented above. Refer to the procedure log report for additional case details. electronically signed on 09/06/2023 9:29:13 AM with status of Final Jarvis Romero MD [facility] [address] [place] [address], [facility] [address] [address] [place] [address] (p) [phone](f) Provider Referring CV IMAGING * SCAN-CARDIAC STRIP (09/06/2023 6:29 AM CDT) Scanner OTHER * GLUCOSE METER (09/06/2023 6:13 AM CDT) [facility] Signature GLUCOSE METER 100 65 - 100 mg/dL 09/06/2023 6:14 AM CDT [facility] Blood BLOOD SPECIMEN / Unknown 09/06/2023 6:13 AM CDT 09/06/2023 6:14 AM CDT [facility] CHEMISTRY [facility] [address] [place] [address], * SCAN-CARDIAC STRIP (09/06/2023 2:43 AM CDT) Scanner OTHER * APTT (09/06/2023 2:08 AM CDT) APTT 34 28 - 36 sec 09/06/2023 2:43 AM CDT [facility] Blood BLOOD SPECIMEN / Unknown Venipuncture / Unknown 09/06/2023 2:08 AM CDT 09/06/2023 2:28 AM CDT Narrative [facility] - 09/06/2023 2:43 AM CDT Therapeutic Range: 57-87 seconds Kevin Puckett MD HEMATOLOGY [facility] [address] [place] [address], * CBC W PLT NO DIFF (08/03/2023 3:47 PM CDT) WHITE BLOOD COUNT 8.6 4.5 - 11.0 thou/cu mm 08/03/2023 3:51 PM CDT [facility] RED BLOOD COUNT 4.86 4.30 - 5.90 mil/cu mm 08/03/2023 3:51 PM CDT [facility] HEMOGLOBIN 15.8 13.5 - 17.5 g/dL 08/03/2023 3:51 PM CDT [facility] HEMATOCRIT 44.7 37.0 - 53.0 % 08/03/2023 3:51 PM CDT [facility] MCV 92 80 - 100 fL 08/03/2023 3:51 PM CDT [facility] MCH 32.5 26.0 - 34.0 pg 08/03/2023 3:51 PM CDT [facility] MCHC 35.3 32.0 - 36.0 g/dL 08/03/2023 3:51 PM CDT [facility] RDW 13.3 11.5 - 15.5 % 08/03/2023 3:51 PM CDT [facility] PLATELET COUNT 210 140 - 440 thou/cu mm 08/03/2023 3:51 PM CDT [facility] MPV 9.9 6.5 - 11.0 fL 08/03/2023 3:51 PM CDT [facility] Blood BLOOD SPECIMEN / Unknown Venipuncture / Unknown 08/03/2023 3:47 PM CDT 08/03/2023 3:48 PM CDT Moose Gilmore MD HEMATOLOGY Performing Organization Address City/[facility]/ZIP Co de Phone Number [facility] [address] [place] [address], * (ABNORMAL) URIC ACID (08/03/2023 3:47 PM CDT) URIC ACID 9.0(H) 3.4 - 7.0 mg/dL 08/04/2023 3:06 PM CDT [facility] Blood BLOOD SPECIMEN / Unknown Venipuncture / Unknown 08/03/2023 3:47 PM CDT 08/03/2023 3:48 PM CDT Moose Gilmore MD CHEMISTRY Performing Organization Address City/[facility]/ZIP Co de Phone Number [facility] [address] [place] [address], * (ABNORMAL) HEPATIC FUNCTION PANEL (08/03/2023 3:47 PM CDT) ALBUMIN 4.4 4.0 - 4.9 g/dL 08/04/2023 3:06 PM CDT [facility] PROTEIN,TOTAL 7.5 6.0 - 8.0 g/dL 08/04/2023 3:06 PM CDT [facility] BILIRUBIN,TOTAL 0.5 0.0 - 1.2 mg/dL 08/04/2023 3:06 PM CDT [facility] BILIRUBIN,DIRECT <0.2 0.0 - 0.3 mg/dL 08/04/2023 3:06 PM CDT [facility] BILIRUBIN,INDIRE CT 08/04/2023 3:06 PM CDT [facility] Comment:Unable to calculate, Direct Bili <0.2 ALK PHOSPHATASE 80 40 - 129 IU/L 08/04/2023 3:06 PM CDT [facility] ALT (SGPT) 57(H) 10 - 50 IU/L 08/04/2023 3:06 PM CDT [facility] AST (SGOT) 48 10 - 50 IU/L 08/04/2023 3:06 PM CDT [facility] Blood BLOOD SPECIMEN / Unknown Venipuncture / Unknown 08/03/2023 3:47 PM CDT 08/03/2023 3:48 PM CDT Moose Gilmore MD CHEMISTRY [facility] [address] [address], * SCAN-OPERATIVE/PROCEDURE REPORT (08/02/2023 12:00 AM CDT) Scanner OTHER * COLONOSCOPY (10/06/2022 7:44 AM CDT) 10/06/2022 7:44 AM CDT Narrative Transcriptions Silvio Padilla MD - 10/06/2022 8:43 AM CDT Patient Name: Feliz Venegas Procedure Date: 10/06/2022 Gender: Male Date [...] candidate for conscious sedation. 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 All rights reserved. The codes documented in this report are preliminary and upon social services designee reviewmay be revised to meet current compliance requirements. Scope In: 8:08:35 AM Scope Withdrawal Time 0 hours 12 minutes 51 seconds Scope Out: 8:27:19 AM Silvio Padilla MD PROCEDURE ORD * ACUTE HEPATITIS PANEL (10/25/2016 5:17 PM CDT) HEPATITIS C ANTIBODY Non-Reactive Non-Reactive 10/27/2016 10:47 PM CDT [facility] IGM ANTI HAV Non-Reactive Non-Reactive 10/28/19 17 10:47 PM CDT [facility] HBSAG Nonreactive Nonreactive 10/27/2016 10:47 PM CDT [facility] IGM ANTI HBC Non-Reactive Non-Reactive 10/28/19 17 10:47 PM CDT [facility] Blood BLOOD SPECIMEN / Unknown Venipuncture / Unknown 10/25/2016 5:17 PM CDT 10/25/2016 5:17 PM CDT Narrative [facility] - 10/27/2016 10:47 PM CDT Anti-HBc IgM not detected. Does not exclude the possibility of exposure to or infection with HBV. Emory Smalls MD SEND OUTS [facility] 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
--- OUTSIDE RECORDS SUMMARY | 2023-09-12 16:44 | XMS_ITS | Continuity of Care Document ---
Author Organization [facility] Address [address] [address] [place] [address] Phone Care Team Providers Care Shore Working Supervisor Name Role Phone Emile Joyner MD Unavailable [...] Diagnoses Date Provider Providers Copied on Encounter [facility] [place], [address] [address], [place], [place], [id number], tel:[phone] [facility] Pancreas cyst [address]. [address] [place] [address], [id number], [place]. tel:[phone] [facility] [place], [address] [address], [place], [place], [id number], [place] tel:[phone] [facility] Pancreas cyst [address] Ar [address]. [address] [place] [address], [id number], [place]. tel:[phone] [facility] [place], [address] [address], [place], [place], [id number], tel:[phone] [facility] Pancreas cyst 1 Ar [address]iste. [address], [id number], . tel:[phone] Virtual Visit E&M New Low-Mod 20-29 Min [facility] [place], [address] [address], [place], [place], [id number], [place] tel:[phone] [facility] GI Symptoms or Concerns (chief complaint) Pancreas cyst [address] [place] [address], [id number], [place]. tel:[phone] Referring Provider: Referral Self, USE FOR SELF REFERRALS. [facility] [place], [address] [address], [place], [place], [id number], tel:[phone] [facility] No Information 0 Ar [address]iste. [address], [id number], . tel:[phone] [facility] [place], [address] [address], [place], [place], [id number], tel:[phone] No Information 0 No Information Referring Provider: Emory Smalls MD E, [address] [place] [address], [place], [address]. tel:[phone] Family History Family Member Type Diagnosis Age [...] bi-directional interface ; Source: Other Registry Novel [id number], all formulations administered Note: [facility] bi-direct ional [...] green party ID Authoriza tijordyn(s) [employer] [place] [employer] [place] Blue BL [id number] Social History Type Description Quantity Date Captured [...]
== END 2023-09-05 23:13 | disposition home or self-care (01) ==
LOC: AMB 09-12 16:41
PROVIDERS: PCP Surgery; Visit Provider Family Medicine
DX: I21.4 Non-ST elevation (NSTEMI) myocardial infarction (principal); I10 Essential (primary) hypertension
CPT/HCPCS: A0425; A0427